=== PATIENT | female | born 1945 | race Caucasian/White ===

== ENCOUNTER → 2018-07-09 07:32 | Outpatient (CLI) | payer MEDICARE, OTHER, SELFPAY ==
[2018-07-09 09:04] LABS: Cholesterol 163 mg/dL (140-199); HDL Cholesterol 43 mg/dL (40-60); LDL Cholesterol Calculated 49 mg/dL (<100); Triglycerides 354 mg/dL (35-150)
== END ==
PROVIDERS: PCP Physician Assistant; Visit Provider Physician Assistant
DX: E78.2 Mixed hyperlipidemia (principal)
CPT/HCPCS: 36415; 80061

== ENCOUNTER → 2018-08-17 12:20 | Outpatient (CLI) | payer MEDICARE, OTHER, SELFPAY ==
[2018-08-17 12:56] LABS: Add Manual Diff / Slide Review NO; Basophils Percent Auto 0.9 % (0-2); Eosinophils Percent Auto 2.3 % (2-4); Hematocrit 41.7 % (36-46); Hemoglobin 14.4 g/dL (12.0-16.0); Lymphocytes Percent Auto 23.2 % (25-40); Mean Corpuscular HGB Conc 34.7 % (30-36); Mean Corpuscular Hemoglobin 29.8 PG (26-34); Monocytes Percent Auto 7.1 % (3-14); Neutrophils Absolute Auto 6200 /uL (3000-5900); Neutrophils Percent Auto 66.5 % (50-75); Platelet Count 250 X10^3/uL (150-400); Red Blood Cell Count 4.84 X10^6/uL (4.0-5.2); Red Cell Distribution Width 13.1 % (11.6-14.8); White Blood Cell Count 9.4 X10^3/uL (4.5-11.0)
[2018-08-17 13:14] LABS: Alanine Aminotransferase 38 IU/L (9-52); Albumin 4.7 g/dL (3.5-5.0); Albumin Globulin Ratio 1.6 (1.0-2.8); Alkaline Phosphatase 66 U/L (38-126); Amylase 107 U/L (30-110); Aspartate Aminotransferase 37 IU/L (14-36); BUN Creatinine Ratio 18.6 (6-22); Bilirubin Total 0.5 mg/dL (0.2-1.3); Blood Urea Nitrogen 13 mg/dL (7-17); Calcium 9.6 mg/dL (8.4-10.2); Carbon Dioxide 24 mmol/L (22-32); Chloride 104 mmol/L (98-107); Estimated Glomerular Filt Rate > 60.0 mL/min (>60); Glucose 95 mg/dL (80-110); HEMOLYSIS 21 (0-50); Lipase 350 U/L (23-300); Potassium 4.3 mmol/L (3.4-5.1); Sodium 138 mmol/L (137-145); Total Protein 7.7 g/dL (6.3-8.2)
== END ==
PROVIDERS: PCP Physician Assistant; Visit Provider Physician Assistant
DX: R10.9 Unspecified abdominal pain (principal); R30.0 Dysuria
CPT/HCPCS: 80053; 82150; 83690; 85025

== ENCOUNTER → 2018-08-22 07:14 | Outpatient (CLI) | payer MEDICARE, OTHER, SELFPAY ==
--- NOTE | 2018-08-22 07:15 | DI.CT.S_ITS ---
PROCEDURE: CT ABDOMEN PELVIS WO CON INDICATIONS: Lower abdominal pain TECHNIQUE: Noncontrast 5 mm thick sections acquired from the diaphragms to the symphysis. 5 mm coronal and sagittal reformats were then performed. For radiation dose reduction, the following was used: automated exposure control, adjustment of mA and/or kV according to patient size. COMPARISON: None. FINDINGS: Image quality: Excellent. ABDOMEN: Lung bases: Lung bases are clear. Heart size is normal. Solid organs: Liver is normal in size. Ill-defined hypodensities are seen throughout left hepatic lobe. Tiny calcified granuloma in right hepatic lobe is seen. Gallbladder is within normal limits. Pancreas is normal in contours. Spleen is normal in size. No adrenal nodules. Kidneys are normal in size, without hydronephrosis or nephrolithiasis. Peritoneum and bowel: Unenhanced bowel loops demonstrate normal wall thickness and caliber. No free fluid or air. Nodes and vessels: No retroperitoneal or mesenteric adenopathy by size criteria. Aorta and inferior vena cava are normal in caliber. Mild colon diverticulosis is seen, and no CT evidence of acute diverticulitis. Miscellaneous: Small periumbilical hernia is seen containing fat only.. PELVIS: Genitourinary: Bladder wall thickness is normal. No gross abnormality is seen in uterus and bilateral adnexa Miscellaneous: Right inguinal hernia is seen containing fat only. No left-sided inguinal hernia. No pelvic adenopathy. Bones: No suspicious bony lesions. No vertebral body compression fractures. IMPRESSION: 1. No acute inflammatory process within abdomen or pelvis. No bowel obstruction. No free fluid or free air. 2. Ill-defined hypodense areas occupying nearly entire left hepatic lobe, suboptimally evaluated due to lack of contrast. Please correlate with patient's liver function tests. Dedicated CT or MRI of abdomen without and with contrast can be done for further evaluation of this region. Dictated by: Dariusz Yoder M.D. on 08/22/2018 at 10:23 Approved by: Dariusz Yoder M.D. on 08/22/2018 at 10:34
== END ==
PROVIDERS: PCP Physician Assistant; Visit Provider Physician Assistant
DX: R10.30 Lower abdominal pain, unspecified (principal); K57.90 Diverticulosis of intestine, part unspecified, without perforation or abscess without bleeding; K42.9 Umbilical hernia without obstruction or gangrene; K40.90 Unilateral inguinal hernia, without obstruction or gangrene, not specified as recurrent
CPT/HCPCS: 74176

== ENCOUNTER → 2018-09-04 12:08 | Outpatient (CLI) | payer MEDICARE, OTHER, SELFPAY ==
--- NOTE | 2018-09-04 | DI.MG.S_ITS ---
BILATERAL DIGITAL SCREENING MAMMOGRAM 3D/2D WITH CAD: 09/04/2018 CLINICAL: Routine screening. Family history of breast cancer. Comparison is made to exams dated: 08/23/2017 mammogram, 08/22/2016 mammogram, and 08/17/2015 mammogram - [facility]. The tissue of both breasts is heterogeneously dense. This may lower the sensitivity of mammography. Current study was also evaluated with a Computer Aided Detection (CAD) system. There is 1.3 cm oval equal density mass with an indistinct and microlobulated margin in the right breast at 9 o'clock middle depth. No other significant masses, calcifications, or other findings are seen in either breast. IMPRESSION: INCOMPLETE: NEEDS ADDITIONAL IMAGING EVALUATION The 1.3 cm oval equal density mass in the right breast is indeterminate. Mediolateral and spot compression views as well as additional views with possible ultrasound are recommended. This exam was interpreted at Station ID: [id number]. NOTE: For mammograms, a report in lay terms will be sent to the patient. Approximately 15% of breast malignancies will not be visualized mammographically. In the management of a palpable breast mass, a negative mammogram must not discourage biopsy of a clinically suspicious lesion. Electronically Signed By: Osmel pablo/jason:09/04/2018 16:33:34 letter sent: Additional Imaging Needed ACR BI-RADS Category 0: Incomplete 3340F
== END ==
PROVIDERS: PCP Physician Assistant; Visit Provider Physician Assistant
DX: Z12.31 Encounter for screening mammogram for malignant neoplasm of breast (principal)
CPT/HCPCS: 77063; 77067

== ENCOUNTER → 2018-10-01 12:20 | Outpatient (CLI) | payer MEDICARE, OTHER, SELFPAY ==
--- NOTE | 2018-10-01 12:24 | DI.US.S_ITS ---
LIMITED ULTRASOUND OF RIGHT BREAST: 10/01/2018 CLINICAL: Patient returns for additional imaging over a suspected mass in the right breast. Comparison is made to exams dated: 10/01/2018 mammogram, 09/04/2018 mammogram, and 08/23/2017 mammogram - [facility]. Real-time and Doppler ultrasound of the right breast 9 o'clock region and axilla were performed. Zendejas scale images of the real-time examination were reviewed. There is a 1 cm x 0.8 cm x 0.5 cm probable cluster of microcysts with an irregular internal wall in the right breast at 9 o'clock middle depth 8 cm from the nipple. This cluster of oval microcysts is hypoechoic with posterior acoustic enhancement. There is no right axillary lymphadenopathy. IMPRESSION: PROBABLY BENIGN The 1 cm x 0.8 cm x 0.5 cm probable cluster of microcysts in the right breast is probably benign. A follow-up ultrasound in 6 months is recommended to demonstrate stability. This exam was interpreted at Station ID: [id number]. Electronically Signed By: Marco Baires M.D. ecl/:10/03/2018 08:51:27 letter sent: Followup Recommended Ultrasound BI-RADS: 3 Probably benign
--- NOTE | 2018-10-01 12:25 | DI.MG.S_ITS ---
UNILATERAL RIGHT DIGITAL DIAGNOSTIC MAMMOGRAM 3D/2D WITH ADDITIONAL VIEWS: 10/01/2018 CLINICAL: Additional evaluation requested from prior study. Family history of breast cancer. Comparison is made to exams dated: 09/04/2018 mammogram, 08/23/2017 mammogram, and 08/22/2016 mammogram - [facility]. The tissue of right breast is heterogeneously dense. This may lower the sensitivity of mammography. Previously identified oval mass in the upper outer right breast at middle depth on comparison screening mammograms persists with additional views, measuring approximately 1.0 cm in diameter on this exam. No other significant masses, calcifications, or other findings are seen in the breast. IMPRESSION: INCOMPLETE: NEEDS ADDITIONAL IMAGING EVALUATION Previously identified oval mass in the upper outer right breast at middle depth on comparison screening mammograms persists with additional views, measuring approximately 1.0 cm in diameter on this exam. A targeted ultrasound is recommended for further evaluation, and will be performed immediately following this exam. This exam was interpreted at Station ID: [id number]. NOTE: For mammograms, a report in lay terms will be sent to the patient. Approximately 15% of breast malignancies will not be visualized mammographically. In the management of a palpable breast mass, a negative mammogram must not discourage biopsy of a clinically suspicious lesion. Electronically Signed By: Marco Baires M.D. ecl/:10/01/2018 13:41:16 letter sent: Additional Imaging Needed ACR BI-RADS Category 0: Incomplete 3340F
[2018-10-01 13:53] LABS: Alanine Aminotransferase 39 IU/L (9-52); Albumin 4.5 g/dL (3.5-5.0); Alkaline Phosphatase 60 U/L (38-126); Amylase 62 U/L (30-110); Aspartate Aminotransferase 27 IU/L (14-36); Bilirubin Total 0.4 mg/dL (0.2-1.3); Bilirubin Unconjugated 0.2 mg/dL (0.0-1.1); Globulin 2.3 g/dL (1.7-4.1); HEMOLYSIS < 15 (0-50); Lipase 330 U/L (23-300); Total Protein 6.8 g/dL (6.3-8.2)
[2018-10-01 14:25] LABS: Thyroid Stimulating Hormone 1.57 uIU/mL (0.47-4.68)
== END ==
PROVIDERS: PCP Physician Assistant; Visit Provider Physician Assistant
DX: R92.8 Other abnormal and inconclusive findings on diagnostic imaging of breast (principal); N63.11 Unspecified lump in the right breast, upper outer quadrant; E78.2 Mixed hyperlipidemia; E03.9 Hypothyroidism, unspecified; R74.8 Abnormal levels of other serum enzymes; Z80.3 Family history of malignant neoplasm of breast
CPT/HCPCS: 36415; 76642; 77065; 80076; 82150; 83690; 84443; G0279

== ENCOUNTER → 2018-10-02 07:28 | Outpatient (CLI) | payer MEDICARE, OTHER, SELFPAY ==
[2018-10-02 16:19] LABS: Cholesterol 166 mg/dL (140-199); HDL Cholesterol 40 mg/dL (40-60); LDL Cholesterol Calculated 69 mg/dL (<100); Triglycerides 283 mg/dL (35-150)
[2018-10-04 12:09] LABS: Estimated Glomerular Filt Rate > 60.0 mL/min (>60)
== END ==
PROVIDERS: PCP Physician Assistant; Visit Provider Physician Assistant
DX: E78.2 Mixed hyperlipidemia (principal); Z51.81 Encounter for therapeutic drug level monitoring; K57.90 Diverticulosis of intestine, part unspecified, without perforation or abscess without bleeding; M85.80 Other specified disorders of bone density and structure, unspecified site; Z01.818 Encounter for other preprocedural examination
CPT/HCPCS: 36415; 80061; 82565

== ENCOUNTER → 2018-10-07 08:12 | Outpatient (CLI) | payer MEDICARE, OTHER, SELFPAY ==
--- NOTE | 2018-10-07 08:14 | DI.MRI.S_ITS ---
PROCEDURE: MR ABDOMEN WO/W CON INDICATIONS: Left lobe liver - hypodensities noted on previous scan TECHNIQUE: Coronal HASTE, axial 2D FLASH in- and [id number]; axial breath-hold T2 FSE. Dynamic axial VIBE during the administration of contrast; post-contrast coronal VIBE or 2D FLASH with fat saturation from the hepatic dome to the iliac crests. Optional diffusion weighted imaging and ADC may be performed. COMPARISON: [facility], CT, CT ABDOMEN PELVIS WO CON, 08/22/2018, 7:12. FINDINGS: Image quality: Excellent. Lung bases: No basal pleural effusions. Heart size is normal. Solid organs: In the left lobe, where there was previously seen ill-defined hypoattenuation on the prior CT dated 08/22/18, there is appears to be diffuse possibly geographic and heterogeneous signal dropout on out of phase T1-weighted imaging, in keeping with fatty infiltration. No definite arterial phase enhancement is seen. No displaced vessels identified. No evidence of a capsule, or focal absent enhancement on the delayed phase images. Gallstone present within the fundus. No evidence of acute cholecystitis. Biliary system is non dilated. Pancreas is normal in morphology. Spleen is normal in size and enhancement. No adrenal nodules. Both kidneys demonstrate normal size and enhancement, without hydronephrosis. Nodes and vessels: No retroperitoneal or mesenteric adenopathy by size criteria. Aorta and inferior vena cava are normal in size. Bowel and peritoneum: Unenhanced bowel loops are normal in caliber. No free fluid. Bones and soft tissues: No ventral hernias. Bone marrow is normal in overall signal. IMPRESSION: Presumed heterogeneous fatty infiltration of the left lobe probably accounts for the CT appearance on prior study dated 08/22/18. No discrete mass or focal suspicious enhancement pattern. Incidental note of cholelithiasis. Dictated by: Zack Herrera M.D. on 10/07/2018 at 12:10 Approved by: Zack Herrera M.D. on 10/07/2018 at 13:27
== END ==
PROVIDERS: PCP Physician Assistant; Visit Provider Physician Assistant
DX: R93.2 Abnormal findings on diagnostic imaging of liver and biliary tract (principal); K80.80 Other cholelithiasis without obstruction
CPT/HCPCS: 74183; A9579

== ENCOUNTER → 2018-11-25 14:12 | Outpatient (CLI) | payer MEDICARE, OTHER, SELFPAY ==
--- NOTE | 2018-11-25 14:13 | DI.RAD.S_ITS ---
This blank DEXA report has been sent in error by the PACS system. The correct and complete report will be forthcoming in 1-2 days. Thank you for your patience and understanding. Dictated by: Dariusz Yoder M.D. on 11/25/2018 at 15:32 Approved by: Dariusz Yoder M.D. on 11/25/2018 at 15:37
== END ==
PROVIDERS: PCP Physician Assistant; Visit Provider Physician Assistant
DX: M85.89 Other specified disorders of bone density and structure, multiple sites (principal); Z78.0 Asymptomatic menopausal state; E07.9 Disorder of thyroid, unspecified; Z82.62 Family history of osteoporosis
CPT/HCPCS: 77080

== ENCOUNTER → 2019-01-14 11:45 | Outpatient (CLI) | payer MEDICARE, OTHER, SELFPAY ==
--- NOTE | 2019-01-14 11:46 | DI.CT.S_ITS ---
PROCEDURE: CT SINUS SCREEN WO CON INDICATIONS: Sinus congestion;difficulty hearing bilaterally. Right greater than left TECHNIQUE: Noncontrast 3.0 mm axial images acquired from the frontal sinuses to the mid-sella, with coronal and sagittal reformats. For radiation dose reduction, the following was used: automated exposure control, adjustment of mA and/or kV according to patient size. COMPARISON: None. FINDINGS: Image quality: Excellent. Maxillary Sinuses: No bony remodeling or destruction. Sinuses are clear. Ethmoid Air Cells: No bony remodeling or destruction. Sinuses are clear. Sphenoid Sinuses: No bony remodeling or destruction. Sinuses are clear. Frontal Sinuses: No bony remodeling or destruction. Sinuses are nonaerated. Ostiomeatal Complexes: Ostiomeatal complexes are patent. No Tomas cells. Miscellaneous: Visualized intra-orbital contents are normal. No vianca bullosa or paradoxical turbinate curvature. No nasal septal deviation. There is fluid in mastoids, right greater than left. IMPRESSION: 1. No active sinusitis. 2. Non-aerated frontal sinuses. 3. Fluid in mastoids, right greater than left. Recommend clinical correlation for mastoiditis. Dictated by: Rylan Angeles M.D. on 01/14/2019 at 12:23 Approved by: Rylan Angeles M.D. on 01/14/2019 at 12:26
== END ==
PROVIDERS: PCP Physician Assistant; Visit Provider Physician Assistant
DX: R09.81 Nasal congestion (principal); J01.91 Acute recurrent sinusitis, unspecified; H91.8X3 Other specified hearing loss, bilateral
CPT/HCPCS: 70486

== ENCOUNTER → 2019-03-17 10:52 | Outpatient (CLI) | payer MEDICARE, OTHER, SELFPAY ==
--- NOTE | 2019-03-17 10:53 | DI.US.S_ITS ---
LIMITED ULTRASOUND OF RIGHT BREAST AND AXILLA: 03/17/2019 CLINICAL: 6 month follow-up of complicated cysts. Comparison is made to exams dated: 10/01/2018 ultrasound, 10/01/2018 mammogram, 09/04/2018 mammogram, 08/23/2017 mammogram, and 08/22/2016 mammogram - [facility]. Color flow and real-time ultrasound of the right breast 8-9 o'clock, and axilla regions were performed on the areas of interest. There is 1.1 cm x 0.3 cm x 0.8 cm oval complicated cyst with a septated internal wall in the right breast at 9 o'clock posterior depth. This oval complicated cyst is hypoechoic with a well-defined boundary and posterior acoustic enhancement. Color flow imaging demonstrates that there is no vascularity present. No abnormalities were seen sonographically in the right axilla. IMPRESSION: PROBABLY BENIGN The 1.1 cm x 0.3 cm x 0.8 cm oval complicated cyst in the right breast is consistent with a complicated cyst and is probably benign. Follow-up ultrasound in 6 months is recommended. A follow-up ultrasound in 6 months is recommended to demonstrate stability at the time of her recommended screening mammogram. This exam was interpreted at Station ID: [id number]. Electronically Signed By: Osmel pablo/:03/17/2019 16:32:29 letter sent: Followup Recommended Ultrasound BI-RADS: 3 Probably benign
== END ==
PROVIDERS: PCP Physician Assistant; Visit Provider Physician Assistant
DX: R92.8 Other abnormal and inconclusive findings on diagnostic imaging of breast (principal); N60.01 Solitary cyst of right breast
CPT/HCPCS: 76642

== ENCOUNTER → 2019-07-24 10:02 | Outpatient (CLI) | payer MEDICARE, OTHER, SELFPAY ==
[2019-07-24 13:33] LABS: Bacteria Urine None Seen
[2019-07-24 14:29] LABS: Appearance Urine UA CLOUDY; Bilirubin Urine UA NEGATIVE (NEGATIVE); Color Urine UA YELLOW; Glucose Urine UA NEGATIVE (Negative); Ketones Urine UA NEGATIVE (NEGATIVE); Leukocyte Esterase Urine UA 3+ (NEGATIVE); Nitrite Urine UA NEGATIVE (Negative); Occult Blood Urine UA 3+ (Negative); Protein Urine UA NEGATIVE (Negative); Specific Gravity Urine UA <=1.005 (1.000-1.035); Urobilinogen Urine UA 0.2 E.U./dL (0.2)
[2019-07-24 14:39] LABS: RBC Urine 10-30/HPF (0-5/HPF)
[2019-07-24 14:40] LABS: Culture Indicated Urine Specimen Cultured; WBC Urine 10-30/HPF (0-5/HPF)
== END ==
PROVIDERS: PCP Physician Assistant; Visit Provider Registered Nurse
DX: R30.0 Dysuria (principal)
CPT/HCPCS: 81001; 87077; 87086; 87186

== ENCOUNTER → 2019-07-28 09:16 | Outpatient (CLI) | payer MEDICARE, OTHER, SELFPAY ==
[2019-07-28 09:56] LABS: Add Manual Diff / Slide Review NO; Basophils Absolute Auto 100 /uL (0-100); Basophils Percent Auto 0.8 % (0-2); Eosinophils Absolute Auto 400 /uL (0-450); Eosinophils Percent Auto 5.1 % (2-4); Hematocrit 35.3 % (36-46); Hemoglobin 11.9 g/dL (12.0-16.0); Lymphocytes Absolute Auto 1500 /uL (1100-4500); Lymphocytes Percent Auto 19.5 % (25-40); Mean Corpuscular HGB Conc 33.6 % (30-36); Mean Corpuscular Hemoglobin 28.4 PG (26-34); Mean Corpuscular Volume 84.4 fL (80-100); Monocytes Absolute Auto 600 /uL (0-900); Monocytes Percent Auto 7.9 % (3-14); Neutrophils Absolute Auto 5100 /uL (1500-7000); Neutrophils Percent Auto 66.7 % (50-75); Platelet Count 276 X10^3/uL (150-400); Red Blood Cell Count 4.19 X10^6/uL (4.0-5.2); Red Cell Distribution Width 13.4 % (11.6-14.8); White Blood Cell Count 7.7 X10^3/uL (4.5-11.0)
[2019-07-28 10:12] LABS: Erythrocyte Sedimentation Rate 76 MM/HR (0-20)
== END ==
PROVIDERS: PCP Physician Assistant; Visit Provider Physician Assistant
DX: M25.50 Pain in unspecified joint (principal); M35.3 Polymyalgia rheumatica
CPT/HCPCS: 36415; 85025; 85651; 86140

== ENCOUNTER → 2019-09-23 13:59 | Outpatient (CLI) | payer MEDICARE, OTHER, SELFPAY ==
--- NOTE | 2019-09-23 14:10 | DI.US.S_ITS ---
LIMITED ULTRASOUND OF RIGHT BREAST: 09/23/2019 CLINICAL: 6 month follow-up of cysts. Comparison is made to exams dated: 09/23/2019 mammogram, 03/17/2019 ultrasound, 10/01/2018 ultrasound, 10/01/2018 mammogram, 09/04/2018 mammogram, and 08/23/2017 mammogram - [facility]. Color flow and real-time ultrasound of the right breast 8-11 o'clock region were performed on the areas of interest. There is a 1.3 cm x 0.7 cm x 0.3 cm cluster of oval cysts with a septated internal wall in the right breast at 8 o'clock posterior depth. This cluster of oval cysts is hypoechoic with posterior acoustic enhancement. These abnormalities are not significantly changed compared to the ultrasound study of 03/17/19 and correlates with mammography findings. Color flow imaging demonstrates that there is no vascularity present. There also is a 1.8 cm x 0.6 cm x 0.6 cm cluster of oval cysts with a septated internal wall in the right breast at 9 o'clock posterior depth. This cluster of oval cysts is hypoechoic with posterior acoustic enhancement. These appear similar to the prior study of 10/01/18 with slight increase in the number of cysts. These also likely correlate with mammography findings. Color flow imaging demonstrates that there is no vascularity present. IMPRESSION: PROBABLY BENIGN The cluster of oval cysts in the right breast at 8 o'clock posterior depth is consistent with complicated cysts and is probably benign. A follow-up ultrasound in 6 months is recommended. The cluster of oval cysts in the right breast at 9 o'clock posterior depth is consistent with complicated cysts and is probably benign. A follow-up ultrasound in 6 months is recommended. A follow-up ultrasound in 6 months is recommended to demonstrate continued stability. This exam was interpreted at Station ID: [id number]. Electronically Signed By: Osmel Parisi M.D. [email or web address]/:09/23/2019 15:39:08 letter sent: Followup Recommended Ultrasound BI-RADS: 3 Probably benign
--- NOTE | 2019-09-23 14:10 | DI.MG.S_ITS ---
BILATERAL DIGITAL DIAGNOSTIC MAMMOGRAM 3D/2D SHORT-TERM FOLLOW-UP: 09/23/2019 CLINICAL: Short term follow up for ultrasound, due bilateral mammogram. Comparison is made to exams dated: 10/01/2018 mammogram, 09/04/2018 mammogram, and 08/23/2017 mammogram - [facility]. The tissue of both breasts is heterogeneously dense. This may lower the sensitivity of mammography. There is an oval equal density asymmetry with a microlobulated margin in the right breast at 9 o'clock posterior depth. This is not significantly changed. No other significant masses, calcifications, or other findings are seen in either breast. IMPRESSION: INCOMPLETE: NEEDS ADDITIONAL IMAGING EVALUATION The oval equal density asymmetry in the right breast is indeterminate. An ultrasound is recommended. This exam was interpreted at Station ID: [id number]. NOTE: For mammograms, a report in lay terms will be sent to the patient. Approximately 15% of breast malignancies will not be visualized mammographically. In the management of a palpable breast mass, a negative mammogram must not discourage biopsy of a clinically suspicious lesion. Electronically Signed By: Osmel pablo/jason:09/23/2019 15:34:00 ACR BI-RADS Category 0: Incomplete 3340F
== END ==
PROVIDERS: PCP Physician Assistant; Visit Provider Physician Assistant
DX: R92.8 Other abnormal and inconclusive findings on diagnostic imaging of breast (principal); N60.01 Solitary cyst of right breast
CPT/HCPCS: 76642; 77066; G0279

== ENCOUNTER → 2020-01-06 10:43 | Outpatient (CLI) | payer MEDICARE, OTHER, SELFPAY ==
[2020-01-06 11:47] LABS: Free T3, Triiodothyronine Free 3.09 pg/mL (2.77-5.27); Free T4, Direct Thyroxine 1.44 ng/dL (0.78-2.19)
[2020-01-06 12:00] LABS: Thyroid Stimulating Hormone 2.09 uIU/mL (0.47-4.68)
== END ==
PROVIDERS: PCP Nurse Practitioner; Referring Provider Nurse Practitioner; Visit Provider Nurse Practitioner
DX: E03.9 Hypothyroidism, unspecified (principal)
CPT/HCPCS: 36415; 84439; 84443; 84481

== ENCOUNTER → 2020-03-31 15:00 | Outpatient (CLI) | payer MEDICARE, OTHER, SELFPAY ==
[2020-03-31 15:23] LABS: Add Manual Diff / Slide Review NO; Basophils Absolute Auto 100 /uL (0-100); Basophils Percent Auto 0.6 % (0-2); Eosinophils Absolute Auto 100 /uL (0-450); Eosinophils Percent Auto 0.7 % (2-4); Hematocrit 37.4 % (36-46); Hemoglobin 12.5 g/dL (12.0-16.0); Lymphocytes Absolute Auto 1100 /uL (1100-4500); Lymphocytes Percent Auto 11.8 % (25-40); Mean Corpuscular HGB Conc 33.3 % (30-36); Mean Corpuscular Hemoglobin 30.4 PG (26-34); Mean Corpuscular Volume 91.3 fL (80-100); Monocytes Absolute Auto 400 /uL (0-900); Monocytes Percent Auto 4.3 % (3-14); Neutrophils Absolute Auto 7800 /uL (1500-7000); Neutrophils Percent Auto 82.6 % (50-75); Platelet Count 276 X10^3/uL (150-400); White Blood Cell Count 9.4 X10^3/uL (4.5-11.0)
[2020-03-31 15:47] LABS: Alanine Aminotransferase 22 IU/L (<35); Albumin 4.3 g/dL (3.5-5.0); Albumin Globulin Ratio 1.5 (1.0-2.8); Alkaline Phosphatase 67 U/L (38-126); Aspartate Aminotransferase 24 IU/L (14-36); BUN Creatinine Ratio 17.6 (6-22); Bilirubin Total 0.2 mg/dL (0.2-1.3); Blood Urea Nitrogen 13 mg/dL (7-17); Carbon Dioxide 23 mmol/L (22-32); Chloride 107 mmol/L (98-107); Estimated Glomerular Filt Rate > 60.0 mL/min (>60); Globulin 2.8 g/dL (1.7-4.1); Glucose 185 mg/dL (80-110); HEMOLYSIS < 15 (0-50); Potassium 4.3 mmol/L (3.4-5.1); Sodium 138 mmol/L (137-145); Total Protein 7.1 g/dL (6.3-8.2)
[2020-03-31 15:57] LABS: C-Reactive Protein Quant < 0.5 mg/dL (<1.0)
[2020-03-31 16:01] LABS: Erythrocyte Sedimentation Rate 15 MM/HR (0-20)
== END ==
PROVIDERS: PCP Nurse Practitioner; Referring Provider Internal Medicine Rheumatology; Visit Provider Internal Medicine Rheumatology
DX: M11.20 Other chondrocalcinosis, unspecified site (principal)
CPT/HCPCS: 36415; 80053; 85025; 85651; 86140

== ENCOUNTER → 2020-07-09 10:28 | Outpatient (CLI) | payer MEDICARE, OTHER, SELFPAY ==
--- NOTE | 2020-07-09 10:30 | DI.US.S_ITS ---
LIMITED ULTRASOUND OF RIGHT BREAST: 07/09/2020 CLINICAL: 6 month follow-up of cysts. Comparison is made to exams dated: 09/23/2019 ultrasound, 09/23/2019 mammogram, 03/17/2019 ultrasound, 10/01/2018 ultrasound, 10/01/2018 mammogram, and 09/04/2018 mammogram - [facility]. Color flow and real-time ultrasound of the right breast 8-9 o'clock region were performed. Zendejas scale images of the real-time examination were reviewed. There is a 1.2 cm x 0.8 cm x 0.3 cm cluster of oval cysts with a septated internal wall in the right breast at 8:30 middle depth 8 cm from the nipple. This cluster of oval cysts is hypoechoic with posterior acoustic enhancement. These abnormalities are not significantly changed. Color flow imaging demonstrates that there is no vascularity present. There also is a 1.2 cm x 0.9 cm x 0.5 cm cluster of oval cysts with a septated internal wall in the right breast at 9:30 posterior depth 9 cm from the nipple. This cluster of oval cysts is hypoechoic with posterior acoustic enhancement. These abnormalities are not significantly changed. Color flow imaging demonstrates that there is no vascularity present. IMPRESSION: PROBABLY BENIGN The 1.2 cm x 0.8 cm x 0.3 cm cluster of oval cysts in the right breast at 8:30middle depth is consistent with complicated cysts and is probably benign. The 1.2 cm x 0.9 cm x 0.5 cm cluster of oval cysts in the right breast at 9:30 posterior depth is consistent with complicated cysts and is probably benign. A follow-up mammogram and an ultrasound in 6 months is recommended to demonstrate continued stability. Findings and recommendations were conveyed to the patient at time of exam. This exam was interpreted at Station ID: [id number]. Electronically Signed By: Brooke turcios/:07/09/2020 11:06:41 letter sent: Followup Recommended Ultrasound BI-RADS: 3 Probably benign
== END ==
PROVIDERS: PCP Nurse Practitioner; Referring Provider Nurse Practitioner; Visit Provider Nurse Practitioner
DX: R92.8 Other abnormal and inconclusive findings on diagnostic imaging of breast (principal); N60.01 Solitary cyst of right breast
CPT/HCPCS: 76642

== ENCOUNTER → 2020-07-15 12:49 | Outpatient (CLI) | payer MEDICARE, OTHER, SELFPAY | PROVIDERS: PCP Nurse Practitioner; Referring Provider Nurse Practitioner; Visit Provider Nurse Practitioner | DX: M85.852 Other specified disorders of bone density and structure, left thigh (principal); Z78.0 Asymptomatic menopausal state; E07.9 Disorder of thyroid, unspecified; Z82.62 Family history of osteoporosis | CPT/HCPCS: 77080 ==

== ENCOUNTER → 2020-07-23 07:04 | Outpatient (CLI) | payer MEDICARE, OTHER, SELFPAY ==
[2020-07-23 08:55] LABS: Hemoglobin A1C% w Est Avg Glu 6.3 % (4.0-6.0)
[2020-07-23 09:04] LABS: Alanine Aminotransferase 24 IU/L (<35); Albumin Globulin Ratio 1.5 (1.0-2.8); Alkaline Phosphatase 61 U/L (38-126); Aspartate Aminotransferase 22 IU/L (14-36); BUN Creatinine Ratio 15.9 (6-22); Bilirubin Total 0.3 mg/dL (0.2-1.3); Blood Urea Nitrogen 17 mg/dL (7-17); Calcium 9.3 mg/dL (8.4-10.2); Carbon Dioxide 27 mmol/L (22-32); Chloride 104 mmol/L (98-107); Cholesterol 168 mg/dL (140-199); Globulin 2.7 g/dL (1.7-4.1); Glucose 89 mg/dL (80-110); HDL Cholesterol 48 mg/dL (40-60); HEMOLYSIS < 15 (0-50); LDL Cholesterol Calculated 78 mg/dL (<100); Potassium 4.6 mmol/L (3.4-5.1); Sodium 138 mmol/L (137-145); Total Protein 6.7 g/dL (6.3-8.2); Triglycerides 210 mg/dL (35-150)
[2020-07-23 09:05] LABS: Creatinine Urine Random 118.5 mg/dL
[2020-07-23 09:10] LABS: Microalbumin Urine Random < 0.6 mg/dL (0-1.6)
[2020-07-23 09:30] LABS: Thyroid Stimulating Hormone 1.26 uIU/mL (0.47-4.68)
== END ==
PROVIDERS: PCP Nurse Practitioner; Referring Provider Nurse Practitioner; Visit Provider Nurse Practitioner
DX: E03.9 Hypothyroidism, unspecified (principal); E78.2 Mixed hyperlipidemia; I10 Essential (primary) hypertension; R73.9 Hyperglycemia, unspecified
CPT/HCPCS: 36415; 80053; 80061; 82043; 82570; 83036; 84443

== ENCOUNTER → 2020-09-17 10:16 | Outpatient (CLI) | payer MEDICARE, OTHER, SELFPAY ==
[2020-09-17 11:41] LABS: Add Manual Diff / Slide Review NO; Basophils Absolute Auto 0 /uL (0-100); Basophils Percent Auto 0.8 % (0-2); Eosinophils Absolute Auto 100 /uL (0-450); Eosinophils Percent Auto 2.4 % (2-4); Hematocrit 38.7 % (36-46); Hemoglobin 12.5 g/dL (12.0-16.0); Lymphocytes Absolute Auto 1700 /uL (1100-4500); Lymphocytes Percent Auto 28.2 % (25-40); Mean Corpuscular HGB Conc 32.3 % (30-36); Mean Corpuscular Hemoglobin 27.5 PG (26-34); Monocytes Absolute Auto 700 /uL (0-900); Monocytes Percent Auto 11.3 % (3-14); Neutrophils Absolute Auto 3400 /uL (1500-7000); Neutrophils Percent Auto 57.3 % (50-75); Platelet Count 207 X10^3/uL (150-400); Red Blood Cell Count 4.55 X10^6/uL (4.0-5.2)
[2020-09-17 11:59] LABS: Erythrocyte Sedimentation Rate 30 MM/HR (0-20)
[2020-09-17 12:13] LABS: Alanine Aminotransferase 100 IU/L (<35); Albumin 3.9 g/dL (3.5-5.0); Albumin Globulin Ratio 1.3 (1.0-2.8); Alkaline Phosphatase 94 U/L (38-126); Aspartate Aminotransferase 56 IU/L (14-36); BUN Creatinine Ratio 21.6 (6-22); Bilirubin Total 0.4 mg/dL (0.2-1.3); Blood Urea Nitrogen 16 mg/dL (7-17); C-Reactive Protein Quant 1.8 mg/dL (<1.0); Calcium 8.7 mg/dL (8.4-10.2); Carbon Dioxide 28 mmol/L (22-32); Chloride 106 mmol/L (98-107); Estimated Glomerular Filt Rate > 60.0 mL/min (>60); Globulin 2.9 g/dL (1.7-4.1); Glucose 93 mg/dL (80-110); HEMOLYSIS < 15 (0-50); Potassium 3.8 mmol/L (3.4-5.1); Sodium 138 mmol/L (137-145); Total Protein 6.8 g/dL (6.3-8.2)
== END ==
PROVIDERS: PCP Nurse Practitioner; Referring Provider Nurse Practitioner; Visit Provider Internal Medicine Rheumatology
DX: M12.9 Arthropathy, unspecified (principal); M79.18 Myalgia, other site; M11.20 Other chondrocalcinosis, unspecified site
CPT/HCPCS: 36415; 80053; 85025; 85651; 86140

== ENCOUNTER → 2020-11-17 07:32 | Outpatient (CLI) | payer MEDICARE, OTHER, SELFPAY ==
[2020-11-17 09:14] LABS: Alanine Aminotransferase 27 IU/L (<35); Albumin 3.6 g/dL (3.5-5.0); Albumin Globulin Ratio 1.4 (1.0-2.8); Alkaline Phosphatase 62 U/L (38-126); Aspartate Aminotransferase 27 IU/L (14-36); Bilirubin Total 0.2 mg/dL (0.2-1.3); Blood Urea Nitrogen 18 mg/dL (7-17); Calcium 9.3 mg/dL (8.4-10.2); Carbon Dioxide 29 mmol/L (22-32); Chloride 106 mmol/L (98-107); Cholesterol 184 mg/dL (140-199); Estimated Glomerular Filt Rate > 60.0 mL/min (>60); Globulin 2.6 g/dL (1.7-4.1); Glucose 104 mg/dL (80-110); HDL Cholesterol 40 mg/dL (40-60); HEMOLYSIS < 15 (0-50); LDL Cholesterol Calculated 75 mg/dL (<100); Potassium 4.5 mmol/L (3.4-5.1); Sodium 138 mmol/L (137-145); Total Protein 6.2 g/dL (6.3-8.2); Triglycerides 344 mg/dL (35-150)
[2020-11-17 14:07] LABS: Hemoglobin A1C% w Est Avg Glu 6.3 % (4.0-6.0)
== END ==
PROVIDERS: PCP Nurse Practitioner; Referring Provider Nurse Practitioner; Visit Provider Nurse Practitioner
DX: E03.9 Hypothyroidism, unspecified (principal); R73.9 Hyperglycemia, unspecified; E78.2 Mixed hyperlipidemia
CPT/HCPCS: 36415; 80053; 80061; 83036

== ENCOUNTER → 2020-12-23 14:09 | Outpatient (CLI) | payer MEDICARE, OTHER, SELFPAY ==
--- NOTE | 2020-12-23 14:12 | DI.MG.S_ITS ---
BILATERAL DIGITAL DIAGNOSTIC MAMMOGRAM 3D/2D SHORT-TERM FOLLOW-UP: 12/23/2020 CLINICAL: Patient returns for a 6 month follow up of the right breast, due for bilateral exam. Comparison is made to exams dated: 09/23/2019 mammogram, 10/01/2018 mammogram, and 09/04/2018 mammogram - [facility]. The tissue of both breasts is heterogeneously dense. This may lower the sensitivity of mammography. There is an oval equal density mass with an indistinct and circumscribed margin in the right breast at 10 o'clock posterior depth. This is not significantly changed and correlates with ultrasound findings. There also is an oval equal density mass with an indistinct and circumscribed margin in the right breast at 9 o'clock middle depth. This is not significantly changed and correlates with ultrasound findings. No other significant masses, calcifications, or other findings are seen in either breast. IMPRESSION: INCOMPLETE: NEEDS ADDITIONAL IMAGING EVALUATION The oval equal density mass in the right breast at 10 o'clock posterior depth is indeterminate. An ultrasound is recommended. The oval equal density mass in the right breast at 9 o'clock middle depth is indeterminate. An ultrasound is recommended. This exam was interpreted at Station ID: [id number]. NOTE: For mammograms, a report in lay terms will be sent to the patient. Approximately 15% of breast malignancies will not be visualized mammographically. In the management of a palpable breast mass, a negative mammogram must not discourage biopsy of a clinically suspicious lesion. Electronically Signed By: Osmel pablo/jason:12/23/2020 15:03:25 ACR BI-RADS Category 0: Incomplete 3340F
--- NOTE | 2020-12-23 14:12 | DI.US.S_ITS ---
LIMITED ULTRASOUND OF RIGHT BREAST: 12/23/2020 CLINICAL: Patient returns today to evaluate focal asymmetries in the right breast. Comparison is made to exams dated: 07/09/2020 ultrasound, 09/23/2019 ultrasound, 09/23/2019 mammogram, 03/17/2019 ultrasound, and 10/01/2018 ultrasound - [facility]. Color flow and real-time ultrasound of the right breast 8-10 o'clock region were performed on the areas of interest. There is a 1.3 cm x 1.4 cm x 0.6 cm cluster of oval cysts with a septated internal wall in the right breast at 10 o'clock middle depth (labeled 9:30 position on images). This cluster of oval cysts is hypoechoic with posterior acoustic enhancement. These abnormalities are slightly increased in size compared to prior studies dating back to 03/17/19 but appears similar in morphology. This correlates with mammography findings. Color flow imaging demonstrates that there is no vascularity present. There also is a 0.6 cm x 0.4 cm x 0.3 cm cluster of oval cysts with a septated internal wall in the right breast at 9 o'clock middle depth. This cluster of oval cysts is hypoechoic with posterior acoustic enhancement. These abnormalities are decreased in size and correlates with mammography findings dating back to prior study of 09/23/19. Color flow imaging demonstrates that there is no vascularity present. IMPRESSION: PROBABLY BENIGN The 1.3 cm x 1.4 cm x 0.6 cm cluster of oval cysts in the right breast at 10 o'clock middle depth is probably benign. The 0.6 cm x 0.4 cm x 0.3 cm cluster of oval cysts in the right breast at 9 o'clock middle depth is probably benign. A follow-up mammogram and an ultrasound in 12 months is recommended to demonstrate 2 year stability for both findings. This exam was interpreted at Station ID: [id number]. Electronically Signed By: Osmel pablo/:12/23/2020 16:20:15 letter sent: Followup Recommended Ultrasound BI-RADS: 3 Probably benign
== END ==
PROVIDERS: PCP Nurse Practitioner; Referring Provider Nurse Practitioner; Visit Provider Nurse Practitioner
DX: R92.8 Other abnormal and inconclusive findings on diagnostic imaging of breast (principal); N60.01 Solitary cyst of right breast
CPT/HCPCS: 76642; 77066; G0279

== ENCOUNTER 2021-04-08 12:05 | Emergency (ER) | payer MEDICARE, OTHER, SELFPAY ==
[2021-04-08] VITALS (12 sets, daily range): BP systolic 150–193; BP diastolic 67–81; PULSE 68–77; RESP 9–20; TEMP 36.7–36.9; O2SAT 95–98
--- NOTE | 2021-04-08 12:17 | DI.RAD.S_ITS ---
PROCEDURE: XR CHEST 2V INDICATIONS: pain left lower chest that moves to the back w/ deep breath. TECHNIQUE: 2 views of the chest were acquired. COMPARISON: [facility], , CHEST 2 VIEW, 11/09/2013, 12:53. FINDINGS: Surgical changes and devices: None. Lungs and pleura: Lungs are clear. No pleural effusions or pneumothorax. Mediastinum: Mediastinal contours are normal. Heart size is normal. Bones and chest wall: No suspicious bony abnormalities. Soft tissues appear unremarkable. IMPRESSION: No acute cardiopulmonary pathology. Dictated by: Dariusz Yoder M.D. on 04/08/2021 at 12:36 Approved by: Dariusz Yoder M.D. on 04/08/2021 at 12:36
--- NOTE | 2021-04-08 14:48 | ED.CHESTPAIN ---
HPI - Chest Pain General Chief Complaint: Chest Pain Stated Complaint: imflammation/pain upper left side to back Time Seen by Provider: 04/08/21 14:19 Source: patient Mode of arrival: Ambulatory Limitations: no limitations History of Present Illness HPI narrative: Patient is a 76-year-old female with history of pseudogout presenting with 5 days of left-sided chest pain. It sometimes radiates around to the back it is sometimes worse with exertion it is sometimes positional sometimes not. She describes it as sometimes sharp and stabbing and sometimes dull and aching but overall not going away. She does not think that she is short of breath she has no palpitations fever or cough. She like to be checked out because she is leaving for vacation in a couple of days. MD complaint: chest pain Related Data Home Medications Medication Instructions Recorded Confirmed [VITAMIN D ] 5,000 PO QDAY #0 08/08/12 11/25/20 [CALCIUM WITH VIT D] 2 tab PO QDAY #0 07/08/13 11/25/20 [CO-Q-10] 1 cap PO QDAY #0 10/16/17 11/25/20 fluticasone propionate 1 spray INTRANASAL PRN PRN #0 10/16/17 11/25/20 cetirizine 10 mg tablet 10 mg PO DAILY tab 02/11/19 11/25/20 pantoprazole 40 mg tablet,delayed 40 mg PO DAILY PRN 02/11/19 11/25/20 release Cranberry See Rx Instructions .ROUTE .COMPLEX 07/14/19 11/25/20 prednisone 5 mg tablet mg PO 11/25/20 11/25/20 Previous Rx's Medication Instructions Recorded albuterol sulfate 90 mcg/actuation 2 puff INHALATION Q4-6H PRN #18 03/17/19 aerosol inhaler gram rosuvastatin 20 mg tablet 20 mg PO HS #90 tab 08/30/20 alendronate 70 mg tablet 70 mg PO QWEEK #12 tab 09/29/20 Synthroid 100 mcg tablet 100 mcg PO QAM #90 tab NS 10/04/20 Allergies Allergy/AdvReac Type Severity Reaction Status Date / Time amoxicillin AdvReac Severe rash Verified 04/08/21 12:17 clavulanic acid AdvReac Severe rash Verified 04/08/21 12:17 levothyroxine sodium AdvReac Severe rash Verified 04/08/21 12:17 Sulfa (Sulfonamide AdvReac Severe rash, hives Verified 04/08/21 12:17 Antibiotics) doxycycline AdvReac Mild nausea and Verified 04/08/21 12:17 vomiting Review of Systems Review of Systems Narrative: GENERAL: Denies chills, fatigue, malaise, fever, sweats, travel HEENT: Denies sinus pain, ear pain, sore throat, difficulty swallowing, neck pain RESPIRATORY: Denies dyspnea, cough, wheezing, hemoptysis, sputum. CARDIOVASCULAR: See HPI GASTROINTESTINAL: Denies nausea, vomiting, abdominal pain, diarrhea, constipation, melena. : Denies dysuria, frequency, incontinence, hematuria, urinary retention, flank pain. MUSCULOSKELETAL: Denies weakness, joint pain, or bony pain SKIN: No rash, no erythema, no pruritus NEUROLOGIC: Denies weakness, dizziness, headache, numbness, change in speech, confusion PSYCHIATRIC: No concerning psychosocial issues. 12 point review of systems is negative except for those stated above and HPI Patient History Medical History Blood glucose elevated Cholelithiasis Chronic pain (Unknown) Diverticulosis of intestine Hearing difficulty of both ears Hyperlipemia (Unknown) Hypertension Hypothyroidism (Unknown) Ingrown toenail of left foot Low back pain Osteopenia (~2006) Peripheral neuropathy Pseudogout involving multiple joints Stenosis of carotid artery (09/2016) Social History Smoking Status: Never smoker second hand exposure: Yes (I was when I was a child. My mom smoked cigarettes and my dad smoked a pipe. ) alcohol intake: current (a bottle of wine a week.) substance use type: does not use Smoking Status: Never smoker alcohol intake frequency: 0-2 drinks per day Substance Use Type: does not use Exam Initial Vital Signs Initial Vital Signs: Vital Signs Temperature 98.1 F 04/08/21 12:12 Pulse Rate 75 04/08/21 12:12 Respiratory Rate 20 04/08/21 12:12 Blood Pressure 193/81 H 04/08/21 12:12 Pulse Oximetry 98 04/08/21 12:12 GENERAL: Alert 76-year-old female appears well and in no acute distress. HEENT: Head atraumatic,EOMI, pupils reactive, face symmetric, moist mucous membranes CARDIOVASCULAR: Regular rate and rhythm without murmurs, rubs or gallops. RESPIRATORY: Breath sounds equal bilaterally, no wheezes rales or rhonchi. Pain is not reproducible with palpation ABDOMEN: Soft, nontender. Normoactive bowel sounds all 4 quadrants. No guarding or rebound. EXTREMITIES: Normal range of motion, no clubbing or edema. Neurovascularly intact NEUROLOGICAL: Alert and oriented x4. SKIN: Warm, dry, no laceration, no petechiae, no rashes or lesions. Scores HEART Score Heart Score history: Slightly Suspicious Heart Score EKG: Normal Heart Score Age: > or = 65 years old Heart Score risk factors: 1-2 risk factors Heart Score troponin: < or = to normal limit Heart Score Total: 3 Course Orders Ordered: ED Orders 04/08/21 12:17 Chest [XR chest 2V] Stat 04/08/21 15:05 EKG-12 Lead Stat 04/08/21 15:15 Complete Blood Count AUTO DIFF Stat Comprehensive Metabolic Panel Stat Lipase Stat Troponin & CK Cardiac Panel Stat Discontinued Medications Ketorolac Tromethamine (Ketorolac 30 Mg/Ml Vial) 15 mg IV NOW ONE Stop: 04/08/21 15:02 Last Admin: 04/08/21 15:17 Dose: 15 mg Documented by: TIGRE Vital Signs Vital signs: Vital Signs - 8 hr 04/08/21 12:12 04/08/21 13:44 04/08/21 13:45 Temperature 98.1 F Pulse Rate 75 77 77 Respiratory Rate 20 16 Blood Pressure 193/81 H 181/72 H Pulse Oximetry 98 96 97 04/08/21 13:46 04/08/21 13:49 04/08/21 14:00 Temperature Pulse Rate 75 75 72 Respiratory Rate 16 Blood Pressure 171/77 H 171/77 H Pulse Oximetry 97 96 96 04/08/21 14:30 04/08/21 15:00 04/08/21 15:21 Temperature Pulse Rate 73 77 70 Respiratory Rate 10 L Blood Pressure 172/78 H Pulse Oximetry 97 97 97 04/08/21 15:30 04/08/21 16:00 04/08/21 16:24 Temperature 98.4 F Pulse Rate 72 68 68 Respiratory Rate 9 L 15 16 Blood Pressure 154/67 H 150/70 H 157/74 H Pulse Oximetry 97 95 97 MDM - Chest Pain Lab Data Attestation: I reviewed the patient's lab results. Result diagrams: 04/08/21 15:15 04/08/21 15:15 Labs: Lab Results 04/08/21 04/08/21 Range/Units 15:15 15:15 WBC 9.8 (4.5-11.0) X10^3/uL RBC 4.54 (4.0-5.2) X10^6/uL Hgb 12.9 (12.0-16.0) g/dL Hct 38.8 (36-46) % MCV 85.4 (80-100) fL MCH 28.3 (26-34) PG MCHC 33.2 (30-36) % RDW 13.9 (11.6-14.8) % Plt Count 260 (150-400) X10^3/uL Neut % (Auto) 85.4 H (50-75) % Lymph % (Auto) 10.5 L (25-40) % Irwin % (Auto) 2.9 L (3-14) % Eos % (Auto) 0.4 L (2-4) % Baso % (Auto) 0.8 (0-2) % Neut # (Auto) 8400 H (7003-1179) /uL Lymph # (Auto) 1000 L (8454-3840) /uL Irwin # (Auto) 300 (0-900) /uL Eos # (Auto) 0 (0-450) /uL Baso # (Auto) 100 (0-100) /uL Sodium 136 L (137-145) mmol/L Potassium 4.3 (3.4-5.1) mmol/L Chloride 105 (98-107) mmol/L Carbon Dioxide 23 (22-32) mmol/L BUN 15 (7-17) mg/dL Creatinine 0.75 (0.52-1.04) mg/dL Estimated GFR > 60.0 (>60) mL/min BUN/Creatinine Ratio 20.0 (6-22) Glucose 146 H (80-110) mg/dL Calcium 9.5 (8.4-10.2) mg/dL Total Bilirubin 0.3 (0.2-1.3) mg/dL AST 37 H (14-36) IU/L ALT 32 (<35) IU/L Alkaline Phosphatase 72 (38-126) U/L Total Creatine Kinase 196 H (30-135) U/L CK-MB (CK-2) 2.26 (<2.37) ng/mL CK-MB (CK-2) Rel Index 1.2 L (1.5-5.0) % Troponin I < 0.012 (0.01-0.034) ng/mL Total Protein 7.4 (6.3-8.2) g/dL Albumin 4.4 (3.5-5.0) g/dL Globulin 3.0 (1.7-4.1) g/dL Albumin/Globulin Ratio 1.5 (1.0-2.8) Lipase 154 (23-300) U/L Imaging Data Chest x-ray: Radiologist's Impression: PROCEDURE: XR CHEST 2V INDICATIONS: pain left lower chest that moves to the back w/ deep breath. TECHNIQUE: 2 views of the chest were acquired. COMPARISON: [facility], CHEST 2 VIEW, 11/09/2013, 12:53. FINDINGS: Surgical changes and devices: None. Lungs and pleura: Lungs are clear. No pleural effusions or pneumothorax. Mediastinum: Mediastinal contours are normal. Heart size is normal. Bones and chest wall: No suspicious bony abnormalities. Soft tissues appear unremarkable. IMPRESSION: No acute cardiopulmonary pathology. Dictated by: Dariusz Yoder M.D. on 04/08/2021 at 12:36 ECG Data Attestation: I personally reviewed and interpreted this ECG as follows: Prior ECG tracings: not available for review Interpretation: Normal sinus rhythm rate 70 p.r. interval 166 QRS [address] changes is no priors to compare MDM Narrative Medical decision making narrative: Patient has nonspecific left-sided chest pain. The workup is negative possible costochondritis or musculoskeletal. However after 5 days of ongoing pain with negative troponin and normal EKG at this time recommend out patient workup. She has low risk heart score. Discharge Plan Departure Patient Disposition: Home Clinical Impression: Atypical chest pain Instructions: DI for Atypical Chest Pain Activity Restrictions/Additional Instructions: *You have been diagnosed with atypical chest pain *What to do: You likely have pulled a muscle, recommend increasing activity as tolerated. You may try heat or ice. *Continue to take medications as directed Tylenol 650 mg every 4-6 hours if needed for [id number] pain *Follow up with your primary care provider in 2-3 days *Return to ER if you should have increasing pain, shortness of breath or any new, worsening or concerning symptoms Prescriptions: No Action cetirizine [Zyrtec] 10 mg tablet 10 mg PO DAILY RF: 0 pantoprazole 40 mg tablet,delayed release (DR/EC) 40 mg PO DAILY PRNRF: 0 [VITAMIN D ] 5,000 PO QDAY Qty: 0 RF: 0 [CALCIUM WITH VIT D] 2 tab PO QDAY Qty: 0 RF: 0 fluticasone propionate 16 GM spray,suspension 1 spray Intranasal PRN PRNQty: 0 RF: 0 [CO-Q-10] 1 cap PO QDAY Qty: 0 RF: 0 albuterol sulfate 90 mcg/actuation HFA aerosol inhaler 2 puff INHALATION Q4-6H PRN (Reason: shortness of breath or wheezing) Qty: 18 RF: 0 rosuvastatin 20 mg tablet 20 mg PO HS Qty: 90 RF: 3 alendronate 70 mg tablet 70 mg PO QWEEK Qty: 12 RF: 4 levothyroxine [Synthroid] 100 mcg tablet 100 mcg PO QAM Qty: 90 RF: 3 Cranberry See Rx Instructions .ROUTE .COMPLEX RF: 0 prednisone 5 mg tablet PO RF: 0 Referrals: Caitlin Peter ARNP [Primary Care Provider] -
[2021-04-08] MEDS: KETOROLAC 30 MG/ML VIAL 15 MG IV (15:17)
[2021-04-08 15:25] LABS: Add Manual Diff / Slide Review NO; Basophils Absolute Auto 100 /uL (0-100); Basophils Percent Auto 0.8 % (0-2); Eosinophils Absolute Auto 0 /uL (0-450); Eosinophils Percent Auto 0.4 % (2-4); Hematocrit 38.8 % (36-46); Hemoglobin 12.9 g/dL (12.0-16.0); Lymphocytes Absolute Auto 1000 /uL (1100-4500); Lymphocytes Percent Auto 10.5 % (25-40); Mean Corpuscular HGB Conc 33.2 % (30-36); Mean Corpuscular Hemoglobin 28.3 PG (26-34); Mean Corpuscular Volume 85.4 fL (80-100); Monocytes Absolute Auto 300 /uL (0-900); Monocytes Percent Auto 2.9 % (3-14); Neutrophils Absolute Auto 8400 /uL (1500-7000); Neutrophils Percent Auto 85.4 % (50-75); Platelet Count 260 X10^3/uL (150-400); Red Blood Cell Count 4.54 X10^6/uL (4.0-5.2); Red Cell Distribution Width 13.9 % (11.6-14.8); White Blood Cell Count 9.8 X10^3/uL (4.5-11.0)
[2021-04-08 15:39] LABS: Alanine Aminotransferase 32 IU/L (<35); Albumin 4.4 g/dL (3.5-5.0); Albumin Globulin Ratio 1.5 (1.0-2.8); Alkaline Phosphatase 72 U/L (38-126); Aspartate Aminotransferase 37 IU/L (14-36); Bilirubin Total 0.3 mg/dL (0.2-1.3); Blood Urea Nitrogen 15 mg/dL (7-17); Calcium 9.5 mg/dL (8.4-10.2); Carbon Dioxide 23 mmol/L (22-32); Chloride 105 mmol/L (98-107); Creatine Kinase 196 U/L (30-135); Estimated Glomerular Filt Rate > 60.0 mL/min (>60); Glucose 146 mg/dL (80-110); HEMOLYSIS 34 (0-50); Lipase 154 U/L (23-300); Potassium 4.3 mmol/L (3.4-5.1); Sodium 136 mmol/L (137-145); Total Protein 7.4 g/dL (6.3-8.2)
[2021-04-08 15:50] LABS: Troponin I < 0.012 ng/mL (0.01-0.034)
[2021-04-08 15:54] LABS: CKMB % Relative Index 1.2 % (1.5-5.0); Creatine Kinase MB 2.26 ng/mL (<2.37)
== END 2021-04-08 16:26 | disposition home or self-care (01) ==
PROVIDERS: Emergency Provider Emergency Medicine; PCP Nurse Practitioner
DX: R07.89 Other chest pain (principal)
CPT/HCPCS: 36415; 71046; 80053; 82550; 82553; 83690; 84484; 85025; 93005; 93010; 96374; 99284; J1885

== ENCOUNTER → 2021-12-26 11:48 | Outpatient (CLI) | payer MEDICARE, OTHER, SELFPAY ==
--- NOTE | 2021-12-26 | DI.US.S_ITS ---
LIMITED ULTRASOUND OF RIGHT BREAST: 12/26/2021 CLINICAL: 6 month follow-up of cysts. Comparison is made to exams dated: 12/26/2021 mammogram, 12/23/2020 ultrasound, 12/23/2020 mammogram, 07/09/2020 ultrasound, and 09/23/2019 [facility]. Color flow and real-time ultrasound of the right breast 9-10 o'clock region were performed. Zendejas scale images of the real-time examination were reviewed. There is a benign 1.3 cm x 1.4 cm x 0.6 cm cluster of oval cysts with a septated internal wall in the right breast at 10 o'clock middle depth. This cluster of oval cysts is hypoechoic with posterior acoustic enhancement. These abnormalities are increased in size and correlates with mammography findings. Color flow imaging demonstrates that there is no vascularity present. There also is a stable benign 0.6 cm x 0.4 cm x 0.3 cm cluster of oval cysts with a septated internal wall in the right breast at 9 o'clock middle depth. This cluster of oval cysts is hypoechoic with posterior acoustic enhancement. This correlates with mammography findings. Color flow imaging demonstrates that there is no vascularity present. IMPRESSION: BENIGN There is no sonographic evidence of malignancy. Clustered complicated and simple cysts at 10 o'clock and 9 o'clock are benign. A 1 year screening mammogram is recommended. This exam was interpreted at Station ID: [id number]. Electronically Signed By: Hardik Benítez M.D. jr/:12/26/2021 13:06:25 letter sent: Normal Exam Ultrasound BI-RADS: 2 Benign
--- NOTE | 2021-12-26 | DI.MG.S_ITS ---
BILATERAL DIGITAL DIAGNOSTIC MAMMOGRAM 3D/2D: 12/26/2021 CLINICAL: One year follow up. Comparison is made to exams dated: 12/23/2020 mammogram, 09/23/2019 mammogram, 10/01/2018 mammogram, and 09/04/2018 mammogram - [facility]. The tissue of both breasts is heterogeneously dense. This may lower the sensitivity of mammography. There is an oval equal density mass with an indistinct and circumscribed margin in the right breast at 10 o'clock posterior depth. This is not significantly changed and correlates with ultrasound findings. There also is an oval equal density mass with an indistinct and circumscribed margin in the right breast at 9 o'clock middle depth. This is not significantly changed and correlates with ultrasound findings. No other significant masses, calcifications, or other findings are seen in either breast. IMPRESSION: INCOMPLETE: NEEDS ADDITIONAL IMAGING EVALUATION The oval equal density mass in the right breast at 10 o'clock posterior depth is unchanged. The oval equal density mass in the right breast at 9 o'clock middle depth is unchanged. Ultrasound of the right breast was recommended previously and will be performed immediately following this exam. This exam was interpreted at Station ID: [id number]. NOTE: For mammograms, a report in lay terms will be sent to the patient. Approximately 15% of breast malignancies will not be visualized mammographically. In the management of a palpable breast mass, a negative mammogram must not discourage biopsy of a clinically suspicious lesion. Electronically Signed By: Hardik Benítez M.D. jr/:12/26/2021 12:28:59 ACR BI-RADS Category 0: Incomplete 3340F
== END ==
PROVIDERS: PCP Nurse Practitioner; Referring Provider Nurse Practitioner; Visit Provider Nurse Practitioner
DX: R92.8 Other abnormal and inconclusive findings on diagnostic imaging of breast (principal); N60.01 Solitary cyst of right breast
CPT/HCPCS: 76642; 77066; G0279

== ENCOUNTER → 2022-01-23 07:54 | Outpatient (CLI) | payer MEDICARE, OTHER, SELFPAY ==
[2022-01-23 09:53] LABS: Add Manual Diff / Slide Review NO; Basophils Absolute Auto 100 /uL (0-100); Basophils Percent Auto 1.1 % (0-2); Eosinophils Absolute Auto 100 /uL (0-450); Eosinophils Percent Auto 2.2 % (2-4); Hematocrit 36.8 % (36-46); Hemoglobin 12.1 g/dL (12.0-16.0); Lymphocytes Absolute Auto 1800 /uL (1100-4500); Lymphocytes Percent Auto 30.2 % (25-40); Mean Corpuscular Hemoglobin 29.1 PG (26-34); Mean Corpuscular Volume 88.4 fL (80-100); Monocytes Absolute Auto 400 /uL (0-900); Monocytes Percent Auto 7.3 % (3-14); Neutrophils Absolute Auto 3600 /uL (1500-7000); Neutrophils Percent Auto 59.2 % (50-75); Platelet Count 251 X10^3/uL (150-400); Red Blood Cell Count 4.17 X10^6/uL (4.0-5.2); Red Cell Distribution Width 14.1 % (11.6-14.8)
[2022-01-23 10:10] LABS: Alanine Aminotransferase 26 IU/L (<35); Albumin 4.3 g/dL (3.5-5.0); Albumin Globulin Ratio 1.6 (1.0-2.8); Alkaline Phosphatase 50 U/L (38-126); Aspartate Aminotransferase 24 IU/L (14-36); BUN Creatinine Ratio 13.8 (6-22); Bilirubin Total 0.3 mg/dL (0.2-1.3); Blood Urea Nitrogen 11 mg/dL (7-17); Calcium 9.1 mg/dL (8.4-10.2); Carbon Dioxide 28 mmol/L (22-32); Chloride 106 mmol/L (98-107); Cholesterol 142 mg/dL (140-199); Estimated Glomerular Filt Rate > 60.0 mL/min (>60); Globulin 2.7 g/dL (1.7-4.1); Glucose 90 mg/dL (80-110); HDL Cholesterol 45 mg/dL (40-60); HEMOLYSIS < 15 (0-50); LDL Cholesterol Calculated 56 mg/dL (<100); Potassium 4.3 mmol/L (3.4-5.1); Sodium 139 mmol/L (137-145); Triglycerides 206 mg/dL (35-150)
[2022-01-23 10:39] LABS: Thyroid Stimulating Hormone 0.954 uIU/mL (0.47-4.68)
== END ==
PROVIDERS: PCP Nurse Practitioner; Referring Provider Nurse Practitioner; Visit Provider Nurse Practitioner
DX: D89.89 Other specified disorders involving the immune mechanism, not elsewhere classified (principal); E03.9 Hypothyroidism, unspecified; R73.9 Hyperglycemia, unspecified; I10 Essential (primary) hypertension; E78.2 Mixed hyperlipidemia; Z79.899 Other long term (current) drug therapy
CPT/HCPCS: 36415; 80053; 80061; 84439; 84443; 84481; 85025

== ENCOUNTER → 2022-01-25 14:01 | Outpatient (CLI) | payer MEDICARE, OTHER, SELFPAY ==
[2022-01-27 16:09] LABS: Fecal Immunochemical Test Negative (Negative)
== END ==
PROVIDERS: PCP Nurse Practitioner; Referring Provider Nurse Practitioner; Visit Provider Nurse Practitioner
DX: Z12.11 Encounter for screening for malignant neoplasm of colon (principal)
CPT/HCPCS: 82274

== ENCOUNTER → 2022-08-01 09:36 | Outpatient (CLI) | payer MEDICARE, OTHER, SELFPAY ==
--- NOTE | 2022-08-01 | DI.US.S_ITS ---
PROCEDURE: US THYROID INDICATIONS: nontoxic single thyroid nodule TECHNIQUE: Real-time scanning was performed of the thyroid gland, with image documentation. COMPARISON: [facility], [place], THYROID, 01/17/2018, 7:31. FINDINGS: Right: Thyroid lobe measures 2.4 x 1 x 0.9 cm. Left: Thyroid lobe measures 2.6 x 1.1 x 0.9 cm. Isthmus: 3 mm thick. The thyroid is diffusely heterogeneous, without focal nodules identified. Several lymph nodes can be seen on both sides, with the largest seen on the left, measuring 5 mm in short axis. IMPRESSION: Generalized heterogeneity of the thyroid, without focal thyroid nodules. Bilateral cervical lymph nodes are seen, without isaac enlargement. ACR TI-RADS definitions and recommendations: TI-RADS 1 (benign): 0 points. FNA not needed. TI-RADS 2 (not suspicious): 2 points. FNA not needed. TI-RADS 3 (mildly suspicious): 3 points. * FNA if 2.5 cm or larger, follow up if 1.5 cm or larger (at 1, 3, and 5 years). TI-RADS 4 (moderately suspicious): 4-6 points. * FNA if 1.5 cm or larger, follow up if 1 cm or larger (at 1, 2, 3, and 5 years). TI-RADS 5 (highly suspicious): 7 points or more. * FNA if 1 cm or larger, follow up if 0.5 cm or larger (every year for 5 years). Dictated by: Indio Laurent M.D. on 08/01/2022 at 10:01 Approved by: Indio Laurent M.D. on 08/01/2022 at 10:03
== END ==
PROVIDERS: PCP Nurse Practitioner; Referring Provider Nurse Practitioner; Visit Provider Nurse Practitioner
DX: E04.1 Nontoxic single thyroid nodule (principal)
CPT/HCPCS: 76536

== ENCOUNTER → 2022-08-22 09:40 | Outpatient (CLI) | payer MEDICARE, OTHER, SELFPAY | PROVIDERS: PCP Nurse Practitioner; Referring Provider Nurse Practitioner; Visit Provider Nurse Practitioner | DX: M81.0 Age-related osteoporosis without current pathological fracture (principal); Z78.0 Asymptomatic menopausal state | CPT/HCPCS: 77080 ==

== ENCOUNTER → 2023-01-03 10:38 | Outpatient (CLI) | payer MEDICARE, OTHER, SELFPAY ==
[2023-01-03 11:28] LABS: COVID-19 CEPHEID 4-PLEX PCR Negative (Negative); Influenza A - CEPHEID Flu A NEGATIVE (NEGATIVE); Influenza B - CEPHEID Flu B NEGATIVE (NEGATIVE); Respiratory Syncytial Virus Negative (Negative)
== END ==
PROVIDERS: PCP Nurse Practitioner; Visit Provider Nurse Practitioner Family
DX: R05.1 Acute cough (principal); Z20.822 Contact with and (suspected) exposure to COVID-19
CPT/HCPCS: 0241U

== ENCOUNTER → 2023-01-04 07:53 | Outpatient (CLI) | payer MEDICARE, OTHER, SELFPAY ==
--- NOTE | 2023-01-04 | DI.MG.S_ITS ---
BILATERAL DIGITAL SCREENING MAMMOGRAM 3D/2D WITH CAD: 01/04/2023 CLINICAL: Routine screening. Family history of breast cancer. Comparison is made to exams dated: 12/26/2021 mammogram, 12/23/2020 mammogram, and 09/23/2019 mammogram - [facility]. Both breasts are heterogeneously dense, which may obscure small masses (category c / 51-75% glandular tissue). Current study was also evaluated with a Computer Aided Detection (CAD) system. There are benign calcifications in both breasts. No significant masses, calcifications, or other findings are seen in either breast. There has been no significant interval change. IMPRESSION: BENIGN There is no mammographic evidence of malignancy. A 1 year screening mammogram is recommended. Based on the Tyrer Cuzick model (a risk assessment model) the patient's lifetime risk is 7.4% and her 10 year risk is 0.0%. According to the ACR, ACS, and NCCN guidelines, an annual breast MRI exam along with mammogram is recommended if the patient's lifetime risk is 20% or greater. This exam was interpreted at Station ID: [id number]. NOTE: For mammograms, a report in lay terms will be sent to the patient. Approximately 15% of breast malignancies will not be visualized mammographically. In the management of a palpable breast mass, a negative mammogram must not discourage biopsy of a clinically suspicious lesion. Electronically Signed By: Fidel carrillo/jason:01/04/2023 11:46:28 letter sent: Normal Exam ACR BI-RADS Category 2: Benign Finding(s) 3342F
== END ==
PROVIDERS: PCP Nurse Practitioner; Referring Provider Nurse Practitioner; Visit Provider Nurse Practitioner
DX: Z12.31 Encounter for screening mammogram for malignant neoplasm of breast (principal); Z80.3 Family history of malignant neoplasm of breast
CPT/HCPCS: 77063; 77067

== ENCOUNTER 2023-10-12 09:35 | Emergency (ER) | payer MEDICARE, OTHER, SELFPAY ==
[2023-10-12 09:36] VITALS: BP 166/72; PULSE 85; RESP 15; TEMP 36.9; O2SAT 99; BMI 29.2
--- NOTE | 2023-10-12 09:52 | PC.NURSE ---
Pt denies SOB,lungs are clear. Pt states she hears wheezing in her upper chest/neck area when she exhales. Pt has increased cough at night. She is also experiencing right eye redness and drainage which she attributes to a sinus infection.
[2023-10-12] MEDS: predniSONE 20 MG TABLET 60 MG PO (11:06)
[2023-10-12] MEDS: ALBUTEROL/IPRATROPIUM 3 ML AMPUL INH (11:23)
[2023-10-12 11:30] VITALS: PULSE 77; RESP 18; O2SAT 99
--- NOTE | 2023-10-12 11:35 | ED_ITS ---
HPI - URI/Sore Throat General Chief Complaint: Upper Respiratory Symptoms Stated Complaint: poss sinus infection getting worse went to [facility] T-3 Time Seen by Provider: 10/12/23 10:36 Source: patient Mode of arrival: Ambulatory History of Present Illness HPI Narrative: 78-year-old woman with a history of pseudogout on chronic prednisone and methotrexate here with a week of respiratory symptoms. She is had a nonproductive cough that for 24 hour now has become productive. She is had wheezing nasal congestion and postnasal drip. She feels a bit short of breath, and also feels as though her symptoms have been getting worse recently. She is not having fevers. She was seen by urgent care on the for the same complaints, she was started on nasal steroids and albuterol. Feels like she is getting worse in spite of these. She is also taking medications for allergy suppression. Related Data Home Medications Medication Instructions Recorded Confirmed [VITAMIN D ] 5,000 PO QDAY ##0 08/08/12 10/08/23 [CALCIUM WITH VIT D] 2 tab PO QDAY ##0 07/08/13 10/08/23 [CO-Q-10] 1 cap PO QDAY ##0 10/16/17 10/08/23 cetirizine 10 mg tablet (Zyrtec) 10 mg PO DAILY 02/11/19 10/08/23 Cranberry See Rx Instructions .Route .COMPLEX 07/14/19 10/08/23 prednisone 5 mg tablet mg PO 11/25/20 10/08/23 hydroxychloroquine 200 mg tablet 200 mg PO DAILY 09/06/21 10/08/23 methotrexate (PF) 25 mg/mL 8 mg SUBCUT QWEEK 09/06/21 10/08/23 subcutaneous syringe vit B2 1.7 mg-B6 2 mg-folic acid 1 cap PO 09/06/21 10/08/23 mg-vit [id number]-ropkuzc-astaxan capsule Previous Rx's Medication Instructions Recorded denosumab 60 mg/mL subcutaneous 60 mg SUBCUT [id number] #1 mL 03/07/22 syringe Synthroid 100 mcg tablet See Rx Instructions .Route 01/25/23 (levothyroxine) .COMPLEX #90 tabs rosuvastatin 20 mg tablet See Rx Instructions .Route 02/26/23 .COMPLEX #90 tabs omeprazole 40 mg capsule,delayed See Rx Instructions .Route 02/28/23 release .COMPLEX #90 caps albuterol sulfate 90 mcg/actuation 2 puff inhalation Q4-6H PRN 10/08/23 aerosol inhaler shortness of breath or wheezing #18 grams fluticasone propionate 110 1 puff inhalation BID #12 grams 10/08/23 mcg/actuation HFA aerosol inhaler (Flovent HFA) loratadine 10 mg tablet (Claritin) 10 mg PO DAILY #30 tabs 10/08/23 azithromycin 250 mg tablet See Rx Instructions PO .COMPLEX #6 10/12/23 tabs prednisone 50 mg tablet 50 mg PO DAILY #4 tabs 10/12/23 Allergies Allergy/AdvReac Type Severity Reaction Status Date / Time amoxicillin Allergy Intermediate rash Verified 10/12/23 11:04 clavulanic acid Allergy Intermediate rash Verified 10/12/23 11:04 levothyroxine sodium Allergy Intermediate rash Verified 10/12/23 11:04 Sulfa (Sulfonamide Allergy Intermediate rash, hives Verified 10/12/23 11:04 Antibiotics) alendronate sodium AdvReac Intermediate Abdominal Verified 10/12/23 09:39 Pain doxycycline AdvReac Mild nausea and Verified 10/12/23 09:39 vomiting Patient History Medical History Adverse reaction to drug in therapeutic use Asthma Blood glucose elevated Cholelithiasis Chronic pain (Unknown) Diverticulosis of intestine Gastroesophageal reflux disease Hearing difficulty of both ears Hyperlipemia (Unknown) Hypertension Hypothyroidism (Unknown) Ingrown toenail of left foot Low back pain Osteopenia (~2006) Peripheral neuropathy Post-menopausal osteoporosis Pseudogout involving multiple joints Stenosis of carotid artery (09/2016) Social History Smoking Status: Never smoker second hand exposure: Yes (I was when I was a child. My mom smoked cigarettes and my dad smoked a pipe. ) alcohol intake: current (a bottle of wine a week.) substance use type: does not use Smoking Status: Never smoker alcohol intake frequency: holidays/special occasions only Substance Use Type: does not use Exam Initial Vital Signs Initial Vital Signs: Vital Signs Temperature 98.5 F 10/12/23 09:36 Pulse Rate 85 10/12/23 09:36 Respiratory Rate 15 10/12/23 09:36 Blood Pressure 166/72 H 10/12/23 09:36 Pulse Oximetry 99 10/12/23 09:36 Oxygen Delivery Method Room Air 10/12/23 09:36 Const General: No acute distress [facility] Head: normocephalic and atraumatic Nose: external nose normal and nasal mucous membranes and turbinates normal Face and sinus: normal facial exam and sinuses nontender Mouth: oral mucosae normal, oropharynx normal and moist mucous membranes Throat: uvula midline Neck Neck: full ROM, no meningeal signs, supple and No lymphadenopathy Resp Effort & Inspection: able to speak in complete sentences, audible wheezes, cough, no use of accessory muscles and No prolonged expiratory phase Cardio Rate: regular rate Rhythm: regular rhythm Heart Sounds: S1 normal and S2 normal Neuro General: patient alert and patient oriented x3 Course Orders Ordered: Discontinued Medications Albuterol/Ipratropium (Albuterol/Ipratropium 3 Ml Ampul) 3 ml INH NOW ONE Stop: 10/12/23 11:01 Last Admin: 10/12/23 11:23 Dose: 3 ml Documented By: SAT Prednisone (Prednisone 20 Mg Tablet) 60 mg PO NOW ONE Stop: 10/12/23 11:01 Last Admin: 10/12/23 11:06 Dose: 60 mg Documented By: RB Vital Signs Vital signs: Vital Signs - 8 hr 10/12/23 09:36 Temperature 98.5 F Pulse Rate 85 Respiratory Rate 15 Blood Pressure 166/72 H Pulse Oximetry 99 Oxygen Delivery Method Room Air MDM - URI/Sore Throat Imaging Data Chest x-ray: My Impression: Independent review of chest x-ray, possible infiltrate right base Radiologist's Impression: IMPRESSION: No acute cardiopulmonary abnormality is seen. No focal infiltrates are seen. [facility] Narrative Medical decision making narrative: 70-year-old female immunosuppressed secondary to pseudogout here with respiratory symptoms including wheezing. She is been getting worse in spite of treatment for reactive airways and allergies. Presentation does not suggest heart failure. She is not hypoxic she is not toxic but chest x-ray does give me concern for possible pneumonia and given her immunosuppression I have a lower threshold for treatment with antibiotics. She has multiple allergies which limit antibiotic choices I started her on a Z-Ramin. Also started her on a course of oral prednisone at 50 mg a day, note that she is chronically on 5 mg a day. She is to continue use her home bronchodilators and follow up with primary care, indications for return to the emergency department and reviewed Discharge Plan Departure Patient Disposition: Home Clinical Impression: Acute lower respiratory tract infection, Cough Instructions: DI for Acute Bronchitis Activity Restrictions/Additional Instructions: Workup today does not indicate a reason for hospitalization however I am concerned that you are getting worse and on medications to suppress her immune system. I have started you on some antibiotics over concern for a possible bacterial infection. In addition, I want you to be on a higher dose of prednisone, 50 mg daily for 5 days, the 1st dose was given in the emergency department. I have sent a prescription for the remainder of the course here pharmacy. Your next dose will be tomorrow. Continue with the albuterol. You can stop the nasal steroid spray while you are taking the higher dose of prednisone. Once this completes resume your previous dose. Additionally, using a nasal saline spray may help clear nose out and you can use Robitussin DM to suppress your cough. If having increasing shortness of breath chest pain or other acute symptoms return to the emergency department. Follow-up soon with your primary care provider. Prescriptions: New prednisone 50 mg tablet 50 mg PO DAILY Qty: 4 0RF azithromycin 250 mg tablet See Rx Instructions .ROUTE .COMPLEX Qty: 6 0RF Rx Instructions: For 250 mg dose pack: take 500 mg today (day 1), then 250 mg for 4 days (days 2-5) No Action cetirizine [Zyrtec] 10 mg tablet 10 mg PO DAILY fluticasone propionate [Flovent HFA] 110 mcg/actuation HFA aerosol inhaler 1 puff inhalation BID Qty: 12 0RF loratadine [Claritin] 10 mg tablet 10 mg PO DAILY Qty: 30 0RF [VITAMIN D ] 5,000 PO QDAY Qty: 0 [CALCIUM WITH VIT D] 2 tab PO QDAY Qty: 0 [CO-Q-10] 1 cap PO QDAY Qty: 0 denosumab 60 mg/mL syringe 60 mg SUBCUT [id number] Qty: 1 2RF Rx Instructions: Inject 1mL (60mg) SQ every 6 months. levothyroxine [Synthroid] 100 mcg tablet See Rx Instructions .ROUTE .COMPLEX Qty: 90 3RF Dose Instruction: TAKE 1 TABLET DAILY Rx Instructions: TAKE 1 TABLET DAILY rosuvastatin 20 mg tablet See Rx Instructions .ROUTE .COMPLEX Qty: 90 3RF Dose Instruction: TAKE 1 TABLET AT BEDTIME Rx Instructions: TAKE 1 TABLET AT BEDTIME omeprazole 40 mg capsule,delayed release(DR/EC) See Rx Instructions .ROUTE .COMPLEX Qty: 90 3RF Dose Instruction: TAKE 1 CAPSULE DAILY FOR GASTROESOPHAGEAL REFLUX DISEASE CAUSED BY ALENDRONATE Rx Instructions: TAKE 1 CAPSULE DAILY FOR GASTROESOPHAGEAL REFLUX DISEASE CAUSED BY ALENDRONATE albuterol sulfate 90 mcg/actuation HFA aerosol inhaler 2 puff INHALATION Q4-6H PRN (Reason: shortness of breath or wheezing) Qty: 18 2RF Cranberry See Rx Instructions .ROUTE .COMPLEX Patient Comments: 1 tab PO daily Rx Instructions: 1 tab PO daily prednisone 5 mg tablet PO Rx Instructions: Prescribed by Dr. Somers, has been on this for over a year for her inflammation hydroxychloroquine 200 mg tablet 200 mg PO DAILY [id number]-astaxan 1.7-2-1-200 mg capsule PO methotrexate (PF) 25 mg/mL syringe 8 mg SUBCUT QWEEK Referrals: Caitlin Peter ARNP [Primary Care Provider] - Stand Alone Forms: Patient Portal/API
--- NOTE | 2023-10-12 11:36 | DI.RAD.S_ITS ---
PROCEDURE: XR CHEST 2V INDICATIONS: cough TECHNIQUE: 2 views of the chest were acquired. COMPARISON: [facility], CHEST 2 VIEW, 11/09/2013, 12:53. [facility], , XR CHEST 2V, 04/08/2021, 12:15. FINDINGS: Surgical changes and devices: None. Lungs and pleura: Lungs are clear. No pleural effusions or pneumothorax. Mediastinum: Mediastinal contours are normal. Heart size is normal. Bones and chest wall: No suspicious bony abnormalities. Age-appropriate bony degenerative changes are seen. Accentuated thoracic kyphosis is seen. Soft tissues appear unremarkable. IMPRESSION: No acute cardiopulmonary abnormality is seen. No focal infiltrates are seen. Dictated by: Indio Laurent M.D. on 10/12/2023 at 11:08 Approved by: Indio Laurent M.D. on 10/12/2023 at 11:09
[2023-10-12 12:33] VITALS: BP 189/87; PULSE 90; RESP 18; O2SAT 97
== END 2023-10-12 12:47 | disposition home or self-care (01) ==
PROVIDERS: Emergency Provider Emergency Medicine; PCP Nurse Practitioner
DX: J22 Unspecified acute lower respiratory infection (principal)
CPT/HCPCS: 71046; 94640; 99283

== ENCOUNTER → 2023-11-02 08:03 | Outpatient (CLI) | payer MEDICARE, OTHER, SELFPAY ==
[2023-11-02 09:47] LABS: Cholesterol 203 mg/dL (140-199); HDL Cholesterol 51 mg/dL (40-60); LDL Cholesterol Calculated 80 mg/dL (<100); Triglycerides 361 mg/dL (35-150)
[2023-11-02 10:14] LABS: TSH w/ Reflex to FT4 1.17 uIU/mL (0.47-4.68)
== END ==
PROVIDERS: Physician Assistant; PCP Nurse Practitioner; Referring Provider Nurse Practitioner; Visit Provider Nurse Practitioner
DX: E03.9 Hypothyroidism, unspecified (principal); E78.5 Hyperlipidemia, unspecified
CPT/HCPCS: 36415; 80061; 84443

== ENCOUNTER → 2024-01-31 11:15 | Outpatient (CLI) | payer MEDICARE, OTHER, SELFPAY ==
--- NOTE | 2024-01-31 11:16 | DI.MG.S_ITS ---
BILATERAL DIGITAL SCREENING MAMMOGRAM 3D/2D WITH CAD: 01/31/2024 CLINICAL: Routine screening. Family history of breast cancer. Comparison is made to exams dated: 01/04/2023 mammogram, 12/26/2021 mammogram, and 12/23/2020 mammogram - [facility]. Both breasts are heterogeneously dense, which may obscure small masses (category c / 51-75% glandular tissue). Current study was also evaluated with a Computer Aided Detection (CAD) system. There is a focal asymmetry in the right breast lower outer quadrant at posterior depth. No other significant masses, calcifications, or other findings are seen in either breast. IMPRESSION: INCOMPLETE: NEEDS ADDITIONAL IMAGING EVALUATION The focal asymmetry in the right breast is indeterminate. A diagnostic mammogram and ultrasound is recommended. Based on the Tyrer Cuzick model (a risk assessment model) the patient's lifetime risk is 6.6% and her 10 year risk is 0.0%. According to the ACR, ACS, and NCCN guidelines, an annual breast MRI exam along with mammogram is recommended if the patient's lifetime risk is 20% or greater. This exam was interpreted at Station ID: [id number]. NOTE: For mammograms, a report in lay terms will be sent to the patient. Approximately 15% of breast malignancies will not be visualized mammographically. In the management of a palpable breast mass, a negative mammogram must not discourage biopsy of a clinically suspicious lesion. Electronically Signed By: Mey Venegas M.D., PH.D eb/:01/31/2024 13:42:16 letter sent: Additional Imaging Needed ACR BI-RADS Category 0: Incomplete [id number]
== END ==
LOC: MAMMO 11:16
PROVIDERS: PCP Nurse Practitioner; Referring Provider Nurse Practitioner; Visit Provider Nurse Practitioner
DX: Z12.31 Encounter for screening mammogram for malignant neoplasm of breast (principal); Z80.3 Family history of malignant neoplasm of breast; R92.333 Mammographic heterogeneous density, bilateral breasts
CPT/HCPCS: 77063; 77067

== ENCOUNTER → 2024-02-06 07:59 | Outpatient (CLI) | payer MEDICARE, OTHER, SELFPAY ==
[2024-02-06 08:46] LABS: Hematocrit 38.4 % (36-46); Hemoglobin 12.9 g/dL (12.0-16.0); Mean Corpuscular HGB Conc 33.5 % (30-36); Mean Corpuscular Hemoglobin 30.5 PG (26-34); Mean Corpuscular Volume 90.8 fL (80-100); Platelet Count 252 X10^3/uL (150-400); Red Blood Cell Count 4.23 X10^6/uL (4.0-5.2); Red Cell Distribution Width 15.7 % (11.6-14.8); White Blood Cell Count 6.4 X10^3/uL (4.5-11.0)
[2024-02-06 09:15] LABS: Alanine Aminotransferase 36 IU/L (<35); Albumin 4.1 g/dL (3.5-5.0); Albumin Globulin Ratio 1.8 (1.0-2.8); Alkaline Phosphatase 57 U/L (38-126); Aspartate Aminotransferase 32 IU/L (14-36); BUN Creatinine Ratio 14.1 (6-22); Bilirubin Total 0.5 mg/dL (0.2-1.3); Blood Urea Nitrogen 12 mg/dL (7-17); C-Reactive Protein Quant < 0.5 mg/dL (<1.0); Calcium 9.9 mg/dL (8.4-10.2); Carbon Dioxide 29 mmol/L (22-32); Chloride 107 mmol/L (98-107); Estimated Glomerular Filt Rate > 60 mL/min (>60); Globulin 2.3 g/dL (1.7-4.1); Glucose 97 mg/dL (80-110); HEMOLYSIS < 15 (0-50); Potassium 4.9 mmol/L (3.4-5.1); Sodium 140 mmol/L (137-145); Total Protein 6.4 g/dL (6.3-8.2)
[2024-02-06 11:56] LABS: Erythrocyte Sedimentation Rate 8 MM/HR (0-20)
== END ==
PROVIDERS: PCP Nurse Practitioner; Referring Provider Specialist/Technologist Athletic Trainer; Visit Provider Specialist/Technologist Athletic Trainer
DX: M11.80 Other specified crystal arthropathies, unspecified site (principal); M11.20 Other chondrocalcinosis, unspecified site
CPT/HCPCS: 36415; 80053; 85027; 85651; 86140

== ENCOUNTER → 2024-04-04 11:41 | Outpatient (CLI) | payer MEDICARE, OTHER, SELFPAY ==
--- NOTE | 2024-04-04 11:43 | DI.US.S_ITS ---
LIMITED ULTRASOUND OF RIGHT BREAST: 04/04/2024 CLINICAL: Patient returns today to evaluate an asymmetry in the right breast. Comparison is made to exams dated: 04/04/2024 mammogram, 01/31/2024 mammogram, 01/04/2023 mammogram, 12/26/2021 ultrasound, 12/26/2021 mammogram, and 12/23/2020 ultrasound - [facility]. Real-time ultrasound of the right breast 6-9 o'clock region was performed. Zenedjas scale images of the real-time examination were reviewed. Numerous small cysts and ectatic ducts are seen in the lower outer quadrant of the right breast in middle and posterior depth. Some may correspond to the mammographic focal asymmetry, which is likely stable from prior imaging allowing for differences in breast compression. IMPRESSION: BENIGN There is no sonographic evidence of malignancy. Return to annual mammogram screening schedule is recommended. This exam was interpreted at Station ID: [id number]. Electronically Signed By: Driss Newton M.D. lc/:04/04/2024 13:11:21 letter sent: Normal Exam Ultrasound BI-RADS: 2 Benign
--- NOTE | 2024-04-04 11:43 | DI.MG.S_ITS ---
UNILATERAL RIGHT DIGITAL DIAGNOSTIC MAMMOGRAM 3D/2D WITH ADDITIONAL VIEWS: 04/04/2024 CLINICAL: Additional evaluation requested from prior study. Comparison is made to exams dated: 01/31/2024 mammogram, 01/04/2023 mammogram, and 12/26/2021 mammogram - [facility]. The right breast is heterogeneously dense, which may obscure small masses (category c / 51-75% glandular tissue). There is a focal asymmetry in the right breast at 7 o'clock middle depth. No other significant masses or calcifications are seen in the breast. IMPRESSION: INCOMPLETE: NEEDS ADDITIONAL IMAGING EVALUATION The focal asymmetry in the right breast is indeterminate. An ultrasound is recommended. Based on the Tyrer Cuzick model (a risk assessment model) the patient's lifetime risk is 5.8% and her 10 year risk is 0.0%. According to the ACR, ACS, and NCCN guidelines, an annual breast MRI exam along with mammogram is recommended if the patient's lifetime risk is 20% or greater. This exam was interpreted at Station ID: [id number]. NOTE: For mammograms, a report in lay terms will be sent to the patient. Approximately 15% of breast malignancies will not be visualized mammographically. In the management of a palpable breast mass, a negative mammogram must not discourage biopsy of a clinically suspicious lesion. Electronically Signed By: Driss coffman/jason:04/04/2024 13:09:03 ACR BI-RADS Category 0: Incomplete [id number]
== END ==
PROVIDERS: PCP Nurse Practitioner; Referring Provider Nurse Practitioner; Visit Provider Nurse Practitioner
DX: R92.8 Other abnormal and inconclusive findings on diagnostic imaging of breast (principal); R92.331 Mammographic heterogeneous density, right breast
CPT/HCPCS: 76642; 77065; G0279

== ENCOUNTER → 2024-11-25 07:49 | Outpatient (CLI) | payer MEDICARE, OTHER, SELFPAY ==
[2024-11-25 08:50] LABS: Cholesterol 148 mg/dL (140-199); HDL Cholesterol 52 mg/dL (40-60); LDL Cholesterol Calculated 54 mg/dL (<100); Triglycerides 209 mg/dL (35-150)
[2024-11-25 09:17] LABS: TSH w/ Reflex to FT4 1.94 uIU/mL (0.47-4.68)
== END ==
PROVIDERS: PCP Family Medicine; Referring Provider Family Medicine; Visit Provider Family Medicine
DX: E03.9 Hypothyroidism, unspecified (principal); E78.2 Mixed hyperlipidemia; Z79.899 Other long term (current) drug therapy
CPT/HCPCS: 36415; 80061; 84443

== ENCOUNTER 2025-03-08 15:18 | Emergency (ER) | payer MEDICARE, OTHER, SELFPAY ==
[2025-03-08 15:32] VITALS: BP 187/95; PULSE 79; RESP 18; TEMP 36.5; O2SAT 97; BMI 28.1
[2025-03-08 17:49] VITALS: BP 209/87; PULSE 80; RESP 17; O2SAT 97
--- NOTE | 2025-03-08 18:29 | ED.BACK ---
HPI - Back Pain/Injury General Chief Complaint: Back Pain/Injury Stated Complaint: pulled back T-7 hardly walk Time Seen by Provider: 03/08/25 18:29 Source: family History of Present Illness HPI Narrative: 79-year-old female past medical history of hypothyroidism, hyperlipidemia, comes into the ED from home for evaluation of back pain. Patient states that she was handed a box several days ago which was heavy, she states that since then she has been having low back pain, but she denies any bowel or urinary incontinence or retention, denies any saddle paresthesias denies any numbness weakness tingling to bilateral lower extremities, states that she feels like a muscle spasm. States that she did take ibuprofen prior to arrival but due to persistent symptoms decided come into the ED for further evaluation treatment. He denies any other injuries at this time. Related Data Home Medications Medication Instructions Recorded Confirmed cetirizine 10 mg tablet (Zyrtec) 10 mg PO DAILY 02/11/19 12/11/24 calcium carbonate-vitamin D3 1 tab PO DAILY 10/24/24 12/11/24 cholecalciferol (vitamin D3) 125 125 mcg PO DAILY 10/24/24 12/11/24 mcg (5,000 unit) capsule coenzyme Q10 1 cap PO DAILY 10/24/24 12/11/24 cranberry extract 1 cap PO DAILY 10/24/24 12/11/24 folic acid 1 mg tablet 1 mg PO DAILY 10/24/24 12/11/24 methotrexate sodium 2.5 mg tablet 20 mg PO QWEEK 10/24/24 12/11/24 Previous Rx's Medication Instructions Recorded denosumab 60 mg/mL subcutaneous 60 mg SUBCUT [id number] #1 mL 03/07/22 syringe loratadine 10 mg tablet (Claritin) 10 mg PO DAILY #30 tabs 10/08/23 albuterol sulfate 90 mcg/actuation 2 puff inhalation Q4-6H PRN 11/05/23 aerosol inhaler shortness of breath or wheezing #18 grams rosuvastatin 40 mg tablet 40 mg PO DAILY #90 tabs 12/18/24 Synthroid 100 mcg tablet See Rx Instructions .Route 12/24/24 (levothyroxine) .COMPLEX #90 tabs famotidine 40 mg tablet 40 mg PO BID for acid reflux #180 12/24/24 tabs diazepam 5 mg tablet (Valium) 5 mg PO BEDTIME PRN muscle spasm 5 03/08/25 days #5 tabs methylprednisolone 4 mg tablets in See Rx Instructions PO .COMPLEX 03/08/25 a dose pack (Medrol (Ramin)) #21 ea oxycodone-acetaminophen 2.5 mg-325 1 tab PO Q8H PRN pain 3 days #9 03/08/25 mg tablet (Percocet) tabs Allergies Allergy/AdvReac Type Severity Reaction Status Date / Time amoxicillin Allergy Intermediate rash Verified 03/08/25 15:37 clavulanic acid Allergy Intermediate rash Verified 03/08/25 15:37 levothyroxine sodium Allergy Intermediate rash Verified 03/08/25 15:37 Sulfa (Sulfonamide Allergy Intermediate rash, hives Verified 03/08/25 15:37 Antibiotics) alendronate sodium AdvReac Intermediate Abdominal Verified 03/08/25 15:37 Pain doxycycline AdvReac Mild nausea and Verified 03/08/25 15:37 vomiting Review of Systems Review of Systems Narrative: General: Denies fever, chills, weight loss HEENT: Denies headache, eye drainage, eye irritation, head trauma, sore throat, voice change Cardiovascular: Denies any chest pain, palpitations, tachycardia Respiratory: Denies any shortness of breath, cough, wheeze, stridor GI/: Denies any abdominal pain, nausea, vomiting, diarrhea, bright red blood per rectum, melanotic stools, urinary frequency, urinary retention, dysuria, hematuria MSK: Positive low back pain Skin: Denies any rashes, lesions, discoloration Neuro: Denies any headache, lightheadedness, dizziness, fainting, weakness Psych: Denies SI/HI Patient History Medical History (Updated 03/08/25 @ 18:48 by Kit Bowden DO) Immunocompromised state due to drug therapy Seronegative inflammatory arthritis Post-menopausal osteoporosis Asthma Gastroesophageal reflux disease Adverse reaction to drug in therapeutic use Low back pain Peripheral neuropathy Blood glucose elevated Pseudogout involving multiple joints Ingrown toenail of left foot Hearing difficulty of both ears Cholelithiasis Stenosis of carotid artery (09/2016) Chronic pain (Unknown) Osteopenia (~2006) Hypothyroidism (Unknown) Diverticulosis of intestine Social History Smoking Status: Never smoker second hand exposure: Yes (I was when I was a child. My mom smoked cigarettes and my dad smoked a pipe. ) alcohol intake: current (a bottle of wine a week.) substance use type: does not use Smoking Status: Never smoker alcohol intake frequency: holidays/special occasions only Exam Narrative Exam Narrative: General: Cooperative, well-developed, not in acute distress HEENT: Normocephalic, atraumatic, PERRLA, normal sclera, eyelids normal Neck: Active full range of motion, atraumatic Chest: Normal to inspection, negative crepitus, no overlying erythema ecchymosis Respiratory: Normal respiratory effort, not in acute respiratory distress, clear to auscultation bilaterally negative cough, wheeze, tachypnea, rhonchi, rales Cardiology: Regular rate rhythm negative gallop, murmur, rubs GI/: No tenderness to palpation, soft, non rigid, normal to inspection, exam deferred MSK: Full active range of motion in all 4 extremities, atraumatic, no tenderness to palpation of any bony prominences, there is no tenderness to palpation of the midline spine, minor tenderness palpation the paraspinal muscles on the left side of the back, no overlying erythema ecchymosis. Skin: No rashes or lesions noted Neuro: Alert awake oriented x3, moves all 4 extremities spontaneously, cranial nerves intact, able to answer all questions appropriately follows commands appropriately Psych: Cooperative, negative suicidal or homicidal ideations Initial Vital Signs Initial Vital Signs: Vital Signs Temperature 97.7 F 03/08/25 15:32 Pulse Rate 79 03/08/25 15:32 Respiratory Rate 18 03/08/25 15:32 Blood Pressure 187/95 H 03/08/25 15:32 Pulse Oximetry 97 03/08/25 15:32 Oxygen Delivery Method Nasal Cannula 03/08/25 15:32 Course Vital Signs Vital signs: Vital Signs - 8 hr 03/08/25 15:32 03/08/25 17:49 Temperature 97.7 F Pulse Rate 79 80 Respiratory Rate 18 17 Blood Pressure 187/95 H 209/87 H Pulse Oximetry 97 97 Oxygen Delivery Method Nasal Cannula Room Air MDM - Back Pain/Injury Differential Diagnosis Differential diagnosis: Likely lumbar radiculopathy, sciatica and strain of lumbar region MDM Narrative Medical decision making narrative: 79-year-old female with a history of hyperlipidemia, hypothyroidism comes into the ED for evaluation of low back pain, she states that this started several days ago after she was given a box that she carried, she states that she has been having intermittent muscle spasms for the past few days, states it initially was improving but now it is harder to walk therefore decided come into the ED for further evaluation treatment. She is able to stand bear weight ambulate however slowed secondary to pain, she has no saddle paresthesias denies any bowel or urinary incontinence or retention no other red flags for cauda equina. Patient was given symptomatic relief and instructed follow up with primary care in outpatient setting, she denies any trauma or falls therefore risks benefits were discussed about imaging, she states that she is okay without any imaging at this time. Patient was given strict return precautions verbalized understanding of this and agrees to being discharged home with outpatient follow up Discharge Plan Departure Patient Disposition: Home Clinical Impression: Lumbar back pain Instructions: DI for Low Back Pain Activity Restrictions/Additional Instructions: Please follow up with the primary care doctor Please read the discharge instructions sheet carefully and bring all papers to all doctor follow-up visits, as it may contain information that your doctor may want to see. Disease processes change and evolve, if your symptoms worsen or if you develop any new symptoms that are concerning to you please return for evaluation. Your evaluation today does not show any evidence of any life-threatening/serious illnesses requiring admission to the hospital or surgery. Please follow-up with your doctor for re-evaluation in approximately 1 day. Seek immediate medical attention for any worrisome symptoms. *If you do not have a primary care provider please contact the [facility] Resource line at [phone]. They will ask some questions about your medical history and help get you set up with a doctor in the community. Prescriptions: New diazepam [Valium] 5 mg tablet 5 mg PO BEDTIME PRN (Reason: muscle spasm) 5 Days Qty: 5 0RF methylprednisolone [Medrol (Ramin)] 4 mg tablets,dose pack See Rx Instructions .ROUTE .COMPLEX Qty: 21 0RF Rx Instructions: for 6 days oxycodone-acetaminophen [Percocet] 2.5-325 mg tablet 1 tab PO Q8H PRN (Reason: pain) 3 Days Qty: 9 0RF No Action cetirizine [Zyrtec] 10 mg tablet 10 mg PO DAILY loratadine [Claritin] 10 mg tablet 10 mg PO DAILY Qty: 30 0RF denosumab 60 mg/mL syringe 60 mg SUBCUT [id number] Qty: 1 2RF Rx Instructions: Inject 1mL (60mg) SQ every 6 months. rosuvastatin 40 mg tablet 40 mg PO DAILY Qty: 90 0RF Rx Instructions: take 1 tab by mouth daily famotidine 40 mg tablet 40 mg PO BID Qty: 180 3RF levothyroxine [Synthroid] 100 mcg tablet See Rx Instructions .ROUTE .COMPLEX Qty: 90 3RF Dose Instruction: TAKE 1 TABLET DAILY Rx Instructions: TAKE 1 TABLET DAILY albuterol sulfate 90 mcg/actuation HFA aerosol inhaler 2 puff INHALATION Q4-6H PRN (Reason: shortness of breath or wheezing) Qty: 18 2RF methotrexate sodium 2.5 mg tablet 20 mg PO QWEEK folic acid 1 mg tablet 1 mg PO DAILY cholecalciferol (vitamin D3) 125 mcg (5,000 unit) capsule 125 mcg PO DAILY coenzyme Q10 1 cap PO DAILY calcium carbonate-vitamin D3 1 tab PO DAILY cranberry extract 1 cap PO DAILY Referrals: Pema Grimaldo DO [Primary Care Provider] - Stand Alone Forms: Patient Portal/API/Survey
[2025-03-08] MEDS: diazePAM 5 MG TABLET PO (18:57)
[2025-03-08] MEDS: predniSONE 20 MG TABLET PO (18:58)
[2025-03-08 19:03] VITALS: BP 199/105; PULSE 64; RESP 18; O2SAT 99
== END 2025-03-08 19:13 | disposition home or self-care (01) ==
PROVIDERS: Emergency Provider Student in an Organized Health Care Education/Training Program; PCP Family Medicine
DX: M54.50 Low back pain, unspecified (principal); X50.0XXA Overexertion from strenuous movement or load, initial encounter
CPT/HCPCS: 81003; 99283; 99284

== ENCOUNTER → 2025-03-18 09:55 | Outpatient (CLI) | payer MEDICARE, OTHER, SELFPAY ==
--- NOTE | 2025-03-18 09:56 | DI.RAD.S_ITS ---
PROCEDURE: XR LUMBAR SPINE 2-3V INDICATIONS: rule out compression fx, malignancy TECHNIQUE: 3 views of the lumbar spine were acquired. COMPARISON: None. FINDINGS: Bones: 5 [id number] vertebrae are present. Mild levoscoliosis has its apex about the L4 vertebral body. Severe L1-L2 disc height loss with adjacent endplate sclerosis and anterior osteophytosis. Retrolisthesis of L1 on L2 measures 0.3 cm and of L2 on L3 measures 0.4 cm. There is otherwise normal bony alignment. No vertebral body compression fractures. No suspicious bony lesions. Soft tissues: Overlying bowel gas pattern is normal. No suspicious soft tissue calcifications. Atherosclerotic vascular calcifications. 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 Dictated by: Jose F Olivier M.D. on 03/18/2025 at 16:11 Approved by: Jose F Olivier M.D. on 03/18/2025 at 16:14
== END ==
PROVIDERS: PCP Family Medicine; Referring Provider Family Medicine; Visit Provider Family Medicine
DX: M47.816 Spondylosis without myelopathy or radiculopathy, lumbar region (principal); M43.16 Spondylolisthesis, lumbar region; M41.9 Scoliosis, unspecified; M54.50 Low back pain, unspecified
CPT/HCPCS: 72100

== ENCOUNTER → 2025-06-27 08:59 | Outpatient (CLI) | payer MEDICARE, OTHER, SELFPAY ==
[2025-06-27 10:37] LABS: Add Manual Diff / Slide Review NO; Hematocrit 37.8 % (36-46); Hemoglobin 13.0 g/dL (12.0-16.0); Lymphocytes Absolute Auto 1100 /uL (1100-4500); Mean Corpuscular HGB Conc 34.3 % (30-36); Mean Corpuscular Hemoglobin 30.3 PG (26-34); Mean Corpuscular Volume 88.3 fL (80-100); Platelet Count 194 X10^3/uL (150-400)
[2025-06-27 11:20] LABS: Alanine Aminotransferase 37 IU/L (<35); Albumin 4.3 g/dL (3.5-5.0); Albumin Globulin Ratio 1.9 (1.0-2.8); Alkaline Phosphatase 60 U/L (38-126); Blood Urea Nitrogen 15 mg/dL (7-17); Calcium 9.6 mg/dL (8.4-10.2); Carbon Dioxide 27 mmol/L (22-32); Chloride 103 mmol/L (98-107); Cholesterol 137 mg/dL (140-199); Estimated Glomerular Filt Rate > 60 mL/min (>60); Globulin 2.3 g/dL (1.7-4.1); Glucose 99 mg/dL (70-99); HDL Cholesterol 49 mg/dL (40-60); HEMOLYSIS < 15 (0-50); Potassium 4.6 mmol/L (3.4-5.1); Sodium 139 mmol/L (137-145); Total Protein 6.6 g/dL (6.3-8.2); Triglycerides 174 mg/dL (35-150)
[2025-06-27 11:43] LABS: TSH w/ Reflex to FT4 1.24 uIU/mL (0.47-4.68)
[2025-06-28 08:12] LABS: CRP, High Sensitivity 1.55 mg/L (0.00-3.00)
== END ==
PROVIDERS: PCP Family Medicine; Referring Provider Specialist/Technologist Athletic Trainer; Visit Provider Specialist/Technologist Athletic Trainer
DX: Z00.00 Encounter for general adult medical examination without abnormal findings (principal); E78.2 Mixed hyperlipidemia; E03.9 Hypothyroidism, unspecified; M11.20 Other chondrocalcinosis, unspecified site; Z51.81 Encounter for therapeutic drug level monitoring
CPT/HCPCS: 36415; 80053; 80061; 84443; 85025; 85651; 86140